=== PATIENT | female | born 1965 | race Caucasian/White ===

== ENCOUNTER 2020-01-06 12:25 | Outpatient (REF) | payer BC, SELFPAY | END 2020-01-06 12:26 | disposition home or self-care (01) | LOC: HO.LAB 12:25 | PROVIDERS: PCP Internal Medicine; Visit Provider Urology | DX: R30.0 Dysuria (principal); R35.0 Frequency of micturition | CPT/HCPCS: 87086 ==

== ENCOUNTER → 2020-02-24 09:00 | Outpatient (BNVA) | payer BC, SELFPAY | PROVIDERS: PCP Internal Medicine; Visit Provider Urology ==

== ENCOUNTER → 2020-09-24 08:52 | Outpatient (BNVA) | payer BC, SELFPAY | PROVIDERS: PCP Internal Medicine; Visit Provider Urology ==

== ENCOUNTER 2021-09-29 08:44 | Inpatient (IN) | payer BC, SELFPAY ==
--- NOTE | ~2021-09-29 | CT_ITS ---
CT ANGIOGRAM NECK WITH CONTRAST CT ANGIOGRAM BRAIN WITH CONTRAST CLINICAL INFORMATION: Right-sided numbness/deficit. COMPARISON: Head CT 09/29/2021. TECHNIQUE: Test bolus sequences followed by intravenous administration 70 mL of Omnipaque 350. Helical imaging was performed in the axial plane from the thoracic inlet to the skull vertex. Delayed postcontrast imaging of the head was also performed. The data was processed at the educational technologist workstation for generation of MIP sequences. Angled MIPs and volume rendered reformatted images were also generated at an offline 3D workstation under concurrent supervision. Stenoses are assessed in accordance with NASCET criteria unless otherwise indicated. This CT examination was performed using dose optimization techniques as appropriate, variously including the following: *Automated exposure control *Adjustment of mA and/or kV according to patient size (this includes techniques or standardized protocols for targeted exams where dose is matched to indication/reason for exam; i.e. extremities or head) *Use of iterative reconstruction technique FINDINGS: BRAIN: [There is no intracranial hemorrhage, hydrocephalus, extra-axial surface collection, midline shift, or other herniation pattern. Wall to white matter differentiation is diffusely maintained without evidence of an evolved acute territorial infarct. The basilar cisterns are preserved. No significant soft tissue abnormality. No acute osseous abnormality. The paranasal sinuses and the mastoid air cells are well aerated.] CERVICAL SOFT TISSUES AND LUNG APICES: Imaged lungs are clear. There is multilevel cervical spondylosis. NECK CTA: [There is a classic 3 vessel configuration of the aortic arch. Proximal arch vessels are non-stenotic. Left vertebral artery is dominant. No significant ostial stenosis is visualized on either side. Both vertebral arteries are widely patent throughout their extracranial cervical course. Both common carotid arteries are normal in course and caliber.] Mild atherosclerotic calcification involving the carotid bifurcations bilaterally without significant stenosis. BRAIN CTA: [There is normal opacification of major intracranial arteries. No focal flow-limiting stenosis nor discrete proximal large artery occlusion. 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 Timing of the contrast bolus allows assessment of the major dural venous sinuses, which all opacify normally] CT/CT angio head neck stroke IMPRESSION: - No acute intracranial findings. - No significant arterial stenoses in no acute arterial occlusions within the head or neck. 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 - Multilevel cervical spondylosis. Stroke protocol CTA results discussed with CHANDANA MCELROY at 10:18 AM on 09/29/2021.
--- NOTE | ~2021-09-29 | MR_ITS ---
MRI OF THE BRAIN WITHOUT IV CONTRAST INDICATION: Possible stroke. COMPARISON: Head CT and CTA head and neck 09/29/2021. TECHNIQUE: Multiplanar multisequence MR imaging of the brain was obtained without IV contrast. FINDINGS: There is mild chronic microangiopathy. There is a small acute infarct within the left starr radiata. No mass effect and no hemorrhagic transformation. There is no hydrocephalus, extra-axial surface collection, or herniation. The major flow voids at the skull base are preserved. 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 There is no intracranial hemorrhage on the gradient recalled echo acquisition. Partially empty sella. The cerebellar tonsils are normally positioned. The cerebellum and brainstem are normal. The craniocervical junction is normal. Osseous marrow signal intensity is homogenous. The visualized soft tissues are unremarkable. MR/MR head/brain wo con IMPRESSION: - There is a small acute infarct within the left starr radiata. No mass effect and no hemorrhagic transformation. - There is mild chronic microangiopathy. 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
--- NOTE | ~2021-09-29 | CT_ITS ---
EXAMINATION: CT HEAD WITHOUT CONTRAST CLINICAL INFORMATION: Evaluate for stroke COMPARISON: None TECHNIQUE: Contiguous axial imaging was performed from the skull base to vertex without intravenous administration of contrast. This CT examination was performed using dose optimization techniques as appropriate, variously including the following: *Automated exposure control *Adjustment of mA and/or kV according to patient size (this includes techniques or standardized protocols for targeted exams where dose is matched to indication/reason for exam; i.e. extremities or head) *Use of iterative reconstruction technique DLP: 600 mGy-cm FINDINGS: There is no evidence of acute intracranial hemorrhage or territorial infarction. No abnormal mass effect or midline shift is seen. Wall to white matter differentiation is well preserved. No extra-axial fluid collections are identified. The ventricles are normal in size. There is no abnormal attenuation within the brain parenchyma. The osseous structures and soft tissues are normal. The mastoid air cells and visualized portions of the paranasal sinuses are well aerated. CT/CT head/brain wo con IMPRESSION: No acute intracranial pathology. This critical result was discussed with NAVI DORAN by telephone on 09/29/2021 9:53 AM and it was ascertained that the content and urgency of the report was understood at the time of direct communication.
[2021-09-29 08:50] VITALS: BP 186/95; PULSE 119; RESP 18; TEMP 36.6; O2SAT 98; BMI 31.1
--- NOTE | 2021-09-29 09:22 | ED.NEUROSD ---
HPI - Neuro Symptoms/Deficit General Chief Complaint: Stroke Stated Complaint: numbness r arm and leg Time Seen by Provider: 09/29/21 09:22 Source: patient Mode of arrival: ambulatory Limitations: no limitations History of Present Illness HPI Narrative: Patient is a 56 year old female presenting to the emergency department today with right sided numbness and weakness. Patient states that at 4am she woke up with right arm and leg numbness and weakness. Patient states that she went back to sleep and woke up at 6am but the symptoms remained the same. Patient denies any facial drooping or slurred speech. Patient denies any change in gait. Patient denies any dizziness, lightheadedness, abdominal pain, nausea, vomiting, fever, chills, blurry vision, double vision, loss of vision, chest pain, difficulty breathing, shortness of breath, back pain, night sweats, pain with urination, increased urinary frequency, increased urinary urgency, blood in her urine or stool, syncope or a near syncopal episode, recent trauma or falls, bowel incontinence, bladder incontinence, bowel retention, bladder retention, or any other complaints at this time. Patient states that she is a 1PPD smoker and has a history of slightly elevated blood pressure but is not medicated for it. Onset (ago): hour(s) (5.5) Time: 04:00 Last Observed Normal: 00:00 Timing confirmed by: spouse Location: right arm and right leg History of same: No Severity: mild Quality: weak, numb and tingling Relieving factors: none Exacerbating factors: none On Anticoagulants: No Associated symptoms: denies other symptoms Treatments Prior to Arrival: none Related Data Home Medications Medication Instructions Recorded Confirmed acetaminophen 500 mg tablet 1,000 mg PO Q6H PRN Pain 09/29/21 09/29/21 calcium carbonate 550 mg-magnesium 1 tab PO DAILY 09/29/21 09/29/21 hydroxide 110 mg chewable tablet ibuprofen 200 mg tablet 400 mg PO Q8H PRN Pain 09/29/21 09/29/21 Allergies Allergy/AdvReac Type Severity Reaction Status Date / Time No Known Allergies Allergy Verified 09/24/20 08:39 Review of Systems Constitutional: Constitutional: Reports no additional constitutional complaints, Denies chills, Denies fever(s), Denies night sweats and Reports weakness Eyes: Eyes: Reports no additional eye complaints, Denies blurry vision, Denies change in vision, Denies diplopia, Denies eye discharge, Denies loss of vision and Denies eye pain ENT: Denies dizziness Cardiovascular: Cardiovascular: Reports no additional cardiovascular complaints, Denies chest pain, Denies lightheadedness, Denies Loss of Consciousness and Denies dyspnea Respiratory: Respiratory: Reports no additional respiratory complaints and Denies dyspnea Gastrointestinal: Gastrointestinal: Reports no additional gastrointestinal complaints, Denies abdominal pain, Denies melena, Denies hematochezia, Denies change in bowel habits and Denies change in stool character Genitourinary: Genitourinary: Denies hematuria, Denies urinary frequency, Denies dysuria, Denies urinary incontinence, Denies urinary hesitancy and Denies urinary urgency Musculoskeletal: Musculoskeletal: Reports no additional musculoskeletal complaints, Reports numbness and Reports tingling Neurologic: Denies dizziness, Denies loss of vision, Reports numbness, Reports tingling and Reports weakness Psychiatric: Psychiatric: Reports no additional psychiatric complaints Endocrine: Endocrine: Reports no additional endocrine complaints Hematologic/Lymphatic: Hematologic/Lymphatic: Reports no additional hematologic/lymphatic complaints Allergic/Immunologic: Allergic/Immunologic: Reports no additional allergic/immunologic complaints FOR[facility]LY [facility] Past Medical History Attestation statement: The following information was validated with the patient. Source: old records reviewed Medical History (Updated 09/29/21 @ 17:04 by NAVI Doran) Complicated UTI (urinary tract infection) CVA (cerebral vascular accident) Dysuria Frequency of micturition Heavy tobacco smoker >10 cigarettes per day Hypertension Recurrent UTI (urinary tract infection) Family History Family History (Updated 09/29/21 @ 13:20 by NAVI Hanna) Father Stomach cancer Mother Sarcoidosis Social History Social History Patient Tobacco Use Status: Current everyday Tobacco user Use of substances other than those prescribed or required for medical reasons: No Advance Directives: No Advance Directives Information Provided: No Physical Exam Vital Signs: Vital Signs: Last Vital Signs Temp 98 F 09/29/21 08:50 Pulse 119 H 09/29/21 08:50 Resp 18 09/29/21 08:50 BP 186/95 H 09/29/21 08:50 Pulse Ox 98 09/29/21 08:50 O2 Del Method 09/29/21 08:50 BMI result Body Mass Index 31.1 Const: General: cooperative, no acute distress, alert and awake Nutritional Appearance: well nourished Orientation/consciousness: patient oriented x3 Limitations: no limitations HEENT: Head: Yes normal to inspection and Yes atraumatic Ears: hearing grossly normal bilaterally and external ears normal General nose exam: Normal external nose present, no nasal discharge noted and no epistaxis Face and sinus: Yes normal facial exam, No abrasion and No laceration Mouth: Normal oral and palatal mucosa present, no drooling and no muffled voice Eyes: General: appearance normal, both eyes and all related structures Periorbital: periorbital findings normal Eyelids: Yes eyelids normal Conjunctivae: conjunctivae normal Pupils: Equal, round and reactive pupils present EOM: EOMs intact bilaterally Neck: Neck: Yes normal visual inspection, Yes full ROM and Yes no lymphadenopathy Chest: Chest palpation & inspection: normal inspection of the chest Resp: Effort & Inspection: normal respiratory effort and able to speak in complete sentences Auscultation: clear to auscultation bilaterally Cardio: Rate: tachycardic Rhythm: regular rhythm GI: Inspection: Yes normal to inspection Neuro: General: patient oriented x3 and moves all extremities Cranial nerves: Yes Equal, round and reactive pupils present Cognition (Neuro): normal cognition Motor exam (neuro): Abnormal motor strength present (mild weakness of the right arm and right leg) and Pronator motor function present pronator drift of right upper extremity Extrem: General: Yes normal to inspection, Yes full ROM and Yes capillary refill normal Psych: Appearance: grossly normal Mental Status: mental status grossly normal Affect: normal affect Attitude: cooperative Thought process: Normal thought process present Thought content: Normal thought content present Insight: Good insight present (Psych) MDM - Neuro Symptoms/Deficit MDM Narrative Medical decision making narrative: Patient is a 56 year old female presenting to the emergency department today with right arm and right leg weakness. Patient's physical exam showed positive right arm drift and minimal right arm and right leg weakness. Patient's blood work was unremarkable. Patient's EKG was unremarkable. Patient's head CT and head CTA showed no acute process. Patient's MR brain showed an acute infarct with T flare. Dr. Washington recommends the patient receive ASA and be admitted for further evaluation. I explained my physical exam findings as well as all test results to the patient and the patient's . I answered all questions asked by the patient and the patient's . I spoke to Dr. Ramey who agreed to admission.Patient and the patient's verbalized agreement and understanding with this treatment plan and admission. Medical Records Attestation: I reviewed the patient's medical records. Lab Data Attestation: I reviewed the patient's lab results. Result diagrams: 09/29/21 09:33 09/29/21 09:33 Labs: Lab Results 09/29/21 09/29/21 09/29/21 Range/Units 09:32 09:33 09:33 WBC 11.1 H (4.8-10.8) X10*3/uL RBC 5.10 (4.20-5.50) X10*6/uL Hgb 15.8 (12.0-16.0) g/dl Hct 46.5 (37.0-47.0) % MCV 91.2 (80.0-98.0) fL MCH 31.0 (27.0-33.0) pg MCHC 34.0 (31.0-35.0) g/dl RDW 13.6 (11.0-16.0) % Plt Count 204 (160-400) X10*3/uL MPV 11.0 (9.4-12.3) fL Immature Gran % (Auto) 0.3 (0.0-0.4) % Neut % (Auto) 78.8 H (45-73) % Lymph % (Auto) 13.4 L (20-40) % [place] % (Auto) 6.0 (2-11) % Eos % (Auto) 1.1 (0-4) % Baso % (Auto) 0.4 (0-2) % Lymph # (Auto) 1.5 (1.2-4.9) X10*3/uL [place] # (Auto) 0.7 (0.1-1.2) X10*3/uL Eos # (Auto) 0.1 (0.0-0.4) X10*3/uL Baso # (Auto) 0.1 (0.0-0.2) X10*3/uL Abs Immat Gran (auto) 0.03 (0.00-0.03) X10*3/uL Absolute Neuts (auto) 8.8 H (2.0-8.3) x10*3/uL Absolute Nucleated RBC 0.000 (0.0-0.012) X10*3/uL Nucleated RBC % (auto) 0.0 (0.0-0.2) /100WBC PT (10.0-13.1) SEC INR (0.9-1.1) APTT (26.0-36.4) SEC Sodium 143 (135-145) mmol/L Potassium 4.1 (3.3-5.1) mmol/L Chloride 107 (96-108) mmol/L Carbon Dioxide 25 (22-29) mmol/L Anion Gap 15 (12-20) BUN 6 L (9-16) mg/dL Creatinine 0.70 (0.5-1.4) mg/dL Estim Creat Clear Calc 84.2 Estimated GFR > 60 POC Glucose 111 (60-115) mg/dL Random Glucose 124 H (60-115) mg/dL Calcium 9.1 (8.4-10.2) mg/dL Magnesium 2.2 (1.6-2.6) mg/dL Total Bilirubin 0.3 (0.0-1.0) mg/dL AST 17 (5-31) U/L ALT 17 (0-31) U/L Alkaline Phosphatase 82 (39-117) U/L Troponin I High Sens (<3.5-17.0) ng/L Total Protein 7.7 (6.5-8.0) g/dL Albumin 4.4 (3.5-5.0) g/dL COVID-19 ([facility]) (Negative) COVID-19 Clin Com 09/29/21 09/29/21 09/29/21 Range/Units 09:33 09:33 09:33 WBC (4.8-10.8) X10*3/uL RBC (4.20-5.50) X10*6/uL Hgb (12.0-16.0) g/dl Hct (37.0-47.0) % MCV (80.0-98.0) fL MCH (27.0-33.0) pg MCHC (31.0-35.0) g/dl RDW (11.0-16.0) % Plt Count (160-400) X10*3/uL MPV (9.4-12.3) fL Immature Gran % (Auto) (0.0-0.4) % Neut % (Auto) (45-73) % Lymph % (Auto) (20-40) % [place] % (Auto) (2-11) % Eos % (Auto) (0-4) % Baso % (Auto) (0-2) % Lymph # (Auto) (1.2-4.9) X10*3/uL [place] # (Auto) (0.1-1.2) X10*3/uL Eos # (Auto) (0.0-0.4) X10*3/uL Baso # (Auto) (0.0-0.2) X10*3/uL Abs Immat Gran (auto) (0.00-0.03) X10*3/uL Absolute Neuts (auto) (2.0-8.3) x10*3/uL Absolute Nucleated RBC (0.0-0.012) X10*3/uL Nucleated RBC % (auto) (0.0-0.2) /100WBC PT 10.8 (10.0-13.1) SEC INR 0.9 (0.9-1.1) APTT 34.0 (26.0-36.4) SEC Sodium (135-145) mmol/L Potassium (3.3-5.1) mmol/L Chloride (96-108) mmol/L Carbon Dioxide (22-29) mmol/L Anion Gap (12-20) BUN (9-16) mg/dL Creatinine (0.5-1.4) mg/dL Estim Creat Clear Calc Estimated GFR POC Glucose (60-115) mg/dL Random Glucose (60-115) mg/dL Calcium (8.4-10.2) mg/dL Magnesium (1.6-2.6) mg/dL Total Bilirubin (0.0-1.0) mg/dL AST (5-31) U/L ALT (0-31) U/L Alkaline Phosphatase (39-117) U/L Troponin I High Sens < 3.5 (<3.5-17.0) ng/L Total Protein (6.5-8.0) g/dL Albumin (3.5-5.0) g/dL COVID-19 ([facility]) Negative (Negative) COVID-19 Clin Com See Note Imaging Data CT scan - head: Attestation: I personally reviewed and interpreted this imaging study as follows: My impression: No acute process. Radiologist's impression: EXAMINATION: CT HEAD WITHOUT CONTRAST CLINICAL INFORMATION: Evaluate for stroke? COMPARISON: None TECHNIQUE: Contiguous axial imaging was performed from the skull base to vertex without intravenous administration of contrast. This CT examination was performed using dose optimization techniques as appropriate, variously including the following: *Automated exposure control *Adjustment of mA and/or kV according to patient size (this includes techniques or standardized protocols for targeted exams where dose is matched to indication/reason for exam; i.e. extremities or head) *Use of iterative reconstruction technique DLP: 600 mGy-cm FINDINGS: There is no evidence of acute intracranial hemorrhage or territorial infarction. No abnormal mass effect or midline shift is seen. Wall to white matter differentiation is well preserved. No extra-axial fluid collections are identified. The ventricles are normal in size. There is no abnormal attenuation within the brain parenchyma. The osseous structures and soft tissues are normal. The mastoid air cells and visualized portions of the paranasal sinuses are well aerated. ? CT/CT head/brain wo con IMPRESSION: No acute intracranial pathology. ? This critical result was discussed with NAVI DORAN by telephone on 09/29/2021 9:53 AM and it was ascertained that the content and urgency of the report was understood at the time of direct communication. Dictated By: Julian Parham MD Signed By: Electronically signed by Julian Parham MD 09/29/21 0958 CTA Head and neck: Attestation: I personally reviewed and interpreted this imaging study as follows: My impression: No acute process. Radiologist's impression: CT ANGIOGRAM NECK WITH CONTRAST CT ANGIOGRAM BRAIN WITH CONTRAST CLINICAL INFORMATION: Right-sided numbness/deficit.? COMPARISON: Head CT 09/29/2021. TECHNIQUE: Test bolus sequences followed by intravenous administration 70 mL of Omnipaque 350. Helical imaging was performed in the axial plane from the thoracic inlet to the skull vertex. Delayed postcontrast imaging of the head was also performed. The data was processed at the production control technologist workstation for generation of MIP sequences. Angled MIPs and volume rendered reformatted images were also generated at an offline 3D workstation under concurrent supervision. Stenoses are assessed in accordance with NASCET criteria unless otherwise indicated. This CT examination was performed using dose optimization techniques as appropriate, variously including the following: *Automated exposure control *Adjustment of mA and/or kV according to patient size (this includes techniques or standardized protocols for targeted exams where dose is matched to indication/reason for exam; i.e. extremities or head) *Use of iterative reconstruction technique FINDINGS: BRAIN: [There is no intracranial hemorrhage, hydrocephalus, extra-axial surface collection, midline shift, or other herniation pattern. Wall to white matter differentiation is diffusely maintained without evidence of an evolved acute territorial infarct. The basilar cisterns are preserved. No significant soft tissue abnormality. No acute osseous abnormality. The paranasal sinuses and the mastoid air cells are well aerated.] CERVICAL SOFT TISSUES AND LUNG APICES: Imaged lungs are clear. There is multilevel cervical spondylosis. NECK CTA: [There is a classic 3 vessel configuration of the aortic arch. Proximal arch vessels are non-stenotic. Left vertebral artery is dominant. No significant ostial stenosis is visualized on either side. Both vertebral arteries are widely patent throughout their extracranial cervical course. Both common carotid arteries are normal in course and caliber.] Mild atherosclerotic calcification involving the carotid bifurcations bilaterally without significant stenosis. BRAIN CTA: [There is normal opacification of major intracranial arteries. No focal flow-limiting stenosis nor discrete proximal large artery occlusion. 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 Timing of the contrast bolus allows assessment of the major dural venous sinuses, which all opacify normally] CT/CT angio head? neck stroke IMPRESSION: - No acute intracranial findings. ? - No significant arterial stenoses in no acute arterial occlusions within the head or neck. ? 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 ? - Multilevel cervical spondylosis. ? Stroke protocol CTA results discussed with CHANDANA MCELROY at 10:18 AM on 09/29/2021. Dictated By: Gato Colvin MD Signed By: Electronically signed by Gato Colvin MD 09/29/21 1021 MRI - head: Attestation: I personally reviewed and interpreted this imaging study as follows: My impression: Acute infarct Radiologist's impression: MRI OF THE BRAIN WITHOUT IV CONTRAST INDICATION: Possible stroke. COMPARISON: Head CT and CTA head and neck 09/29/2021. TECHNIQUE: Multiplanar multisequence MR imaging of the brain was obtained without IV contrast. FINDINGS: There is mild chronic microangiopathy. There is a small acute infarct within the left starr radiata. No mass effect and no hemorrhagic transformation. There is no hydrocephalus, extra-axial surface collection, or herniation. The major flow voids at the skull base are preserved. 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 There is no intracranial hemorrhage on the gradient recalled echo acquisition. Partially empty sella. The cerebellar tonsils are normally positioned. The cerebellum and brainstem are normal. The craniocervical junction is normal. Osseous marrow signal intensity is homogenous. The visualized soft tissues are unremarkable. MR/MR head/brain wo con IMPRESSION: - There is a small acute infarct within the left starr radiata. No mass effect and no hemorrhagic transformation. ? - There is mild chronic microangiopathy. ? 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 Dictated By: Gato Colvin MD Signed By: Electronically signed by Gato Colvin MD 09/29/21 1157 ECG Data Attestation: I personally reviewed and interpreted this ECG as follows: ECG interpretation date: 09/29/21 ECG interpretation time: : Prior ECG tracings: available for review Interpretation: Vent. Rate: 107 BPM ? ? Atrial Rate: 107 BPM P-R Int: 160 ms? QRS Dur: 080 ms QT Int: 346 ms ? ? ? P-R-T Axes: 067 011 052 degrees QTc Int: 461 ms ? Sinus tachycardia Possible Left atrial enlargement Abnormal ECG No previous ECGs available ? Referred By: Chandana Mills ? Electronically Signed By:DERRICK DECKERCP Dictated By: Derrick Raymond DO Signed By: Electronically signed by Derrick Raymond DO 09/29/21 1034 NIH Stroke Scale Internal: Initial- Upon Arrival Time: : Level of Consciousness: Alert Level of Consciousness Questions: Answers both questions correctly Level of Consciousness Commands: Performs both tasks correctly Best Gaze: Normal Visual: No visual loss Facial Palsy: Normal Motor Arm (Right): Drift Motor Arm (Left): No drift Motor Leg (Right): No drift Motor Leg (Left): No drift Limb Ataxia: Absent Sensory: Normal Best Language: No aphasia Dysarthia: Normal Extinction and Inattention: No abnormality Score: 1 Critical Care Time Critical Care Time Critical Care Time: Yes Total Critical Care Time: 35 Attestation: I spent 35 minutes of Critical Care Time with this patient. This does not include time spent on separately reported billable procedures. Discharge Plan Discharge Clinical Impression: CVA (cerebral vascular accident) Patient Disposition: Admitted As Inpatient
--- NOTE | 2021-09-29 09:27 | ECG_ITS ---
Test Reason : stroke Blood Pressure : / mmHG Vent. Rate : 107 BPM Atrial Rate : 107 BPM P-R Int : 160 ms QRS Dur : 080 ms QT Int : 346 ms P-R-T Axes : 067 011 052 degrees QTc Int : 461 ms Sinus tachycardia Possible Left atrial enlargement Abnormal ECG No previous ECGs available Referred By: Marie Mills Electronically Signed By:DERRICK BOYD
[2021-09-29 09:36] LABS: Glucose, Whole Blood 111 mg/dL (60-115)
[2021-09-29 09:37] LABS: MANUAL DIFF FLAG NO
[2021-09-29 09:39] LABS: Basophils Absolute Auto 0.1 X10*3/uL (0.0-0.2); Basophils Percent Auto 0.4 % (0-2); Eosinophils Absolute Auto 0.1 X10*3/uL (0.0-0.4); Eosinophils Percent Auto 1.1 % (0-4); Hematocrit 46.5 % (37.0-47.0); Hemoglobin 15.8 g/dl (12.0-16.0); Imm Gran Abs Auto 0.03 X10*3/uL (0.00-0.03); Imm Gran Pct Auto 0.3 % (0.0-0.4); Lymphocytes Absolute Auto 1.5 X10*3/uL (1.2-4.9); Lymphocytes Percent Auto 13.4 % (20-40); Mean Corpuscular Volume 91.2 fL (80.0-98.0); Monocytes Absolute Auto 0.7 X10*3/uL (0.1-1.2); Neutrophils Absolute Auto 8.8 x10*3/uL (2.0-8.3); Neutrophils Percent Auto 78.8 % (45-73); Platelet Count 204 X10*3/uL (160-400); Red Cell Distribution Width 13.6 % (11.0-16.0); White Blood Count 11.1 X10*3/uL (4.8-10.8)
[2021-09-29 09:45] LABS: INTERNATIONAL NORM RATIO 0.9 (0.9-1.1); Prothrombin Time 10.8 SEC (10.0-13.1)
[2021-09-29 09:52] LABS: COVID-19 Test Negative (Negative); IDNOW Serial# 16C4AD1C
[2021-09-29 09:59] LABS: Troponin-I High Sensitivity < 3.5 ng/L (<3.5-17.0)
[2021-09-29] MEDS: iohexoL 350 MG/ML 100 ML INFUS..BTL IV (10:02)
[2021-09-29 10:05] LABS: Alanine Aminotransferase 17 U/L (0-31); Albumin Level 4.4 g/dL (3.5-5.0); Alkaline Phosphatase 82 U/L (39-117); Anion Gap 15 (12-20); Aspartate Amino Transferase 17 U/L (5-31); Bilirubin Total 0.3 mg/dL (0.0-1.0); Blood Urea Nitrogen 6 mg/dL (9-16); Calcium 9.1 mg/dL (8.4-10.2); Carbon Dioxide 25 mmol/L (22-29); Chloride 107 mmol/L (96-108); Creatinine Clr Calc Pharmacy 84.2; Estimated Glomerular Filt Rate > 60; Glucose Random 124 mg/dL (60-115); Magnesium 2.2 mg/dL (1.6-2.6); Potassium 4.1 mmol/L (3.3-5.1); Sodium 143 mmol/L (135-145); Total Protein 7.7 g/dL (6.5-8.0)
[2021-09-29] MEDS: Aspirin 81 MG TAB.CHEW 324 MG PO (11:32)
[2021-09-29] MEDS: Nicotine Polacrilex 2 MG GUM BUCCAL ×2 (12:11→17:46)
--- NOTE | 2021-09-29 12:20 | MHC.STROKE ---
Addendum entered by Paulette Wing RN 10/04/21 11:33: [address] [facility] [address] HARDING. I SPOKE WITH JOHN THE YARD RIGGER. SHE IS ASSISTING ME IN GETTING AN OP PT/OT ORDER FOR THIS PATIENT. AT 1131 SHE CONFIRMED THAT THE ORDER WAS FAXED AND I DID FOLLOW UP WITH [facility] [place] [facility] [place]LLOW UP WITH THE PATIENT REGARDING THIS ORDER. Addendum entered by Paulette Wing RN 10/03/21 09:51: [facility] AND THEY DO NOT HAVE AN OP ORDER FOR PT AND OT. I ALSO CHECKED WITH THE CALL CENTER [facility] AND REVIEWED THIS CASE. SHE WILL CONTACT THE HOSPITALIST OR DR HARDING FOR AN ORDER FOR OP PT AND OT. WE WILL GET HER AN APPOINTMENT SOON POSSIBLE. Addendum entered by Paulette Wing RN 09/30/21 14:33: EXCLUDED FROM VTE PROPHYLAXIS DUE TO BEING AMBULATORY. Addendum entered by Paulette Wing RN 09/30/21 14:23: 1300 I MET WITH THE PATIENT AND HER TODAY A FOLLOW UP, HER ECHO WAS PENDING THEN SHE WILL BE DISCHARGED HOME. HER DEFICITS FROM YESTERDAY ARE WORSENED, THE HAND IS STILL ATAXIC AND WEAK, AND NOW THE RIGHT LEG HAS A DRIFT AND HAS DECREASED MOBILITY. OT WAS UNAVAILABLE TODAY THEREFORE I RECEIVED A 2-PAGE HANDOUT OF HAND EXERCISE, PUTTY, AND COTTON BALLS THAT I REVIEWED WITH HER ON HOW TO EXERCISE HER HAND AND FINGERS, SHE WILL NEED OP OT AND PT. HER RIGHT LEG IS UNCOORDINATED AND THEREFORE SHE HAS BEEN ADVISED NOT TO DRIVE 9SHE COULD NOT MANAGE THE GAS AND BRAKE PEDDLE DUE TO THIS STROKE. I DID REVIEW THIS WITH HER AND HER AND STRESSED THE IMPORTANCE OF FOLLOWING UP WITH HER PCP AND THEY WILL COORDINATE HER CARE AND CLEAR HER WHEN SHE CAN DRIVE OR GO BACK TO WORK. SHE WAS COOPERATIVE BUT DEFINITELY DID NOT WANT TO STAY IN THE HOSPITAL ANY LONGER THAN NEEDED. SHE DECIDED SHE WOULD STAY FOR HER ECHOCARDIOGRAM. I ANSWERED ALL OF THEIR QUESTIONS AND REINFORCED HER RISK FACTORS, HTN, HLD, SMOKING AND SHE UNDERSTANDS. Original Note: 09/29/21 0844 PATIENT WALKED-IN WITH C/O RIGHT HAND/ARM WEAKNESS, LKW 0000, WOKE AT 0400 AND NOTICED RIGHT ARM AND HAND SLIGHT LEG WEAKNESS, WENT BACK TO BED AND WOKE AGAIN AT 0600 AND HAD ONGOING RIGHT HAND/LEG WEAKNESS. EXAMINED BY Talon MCELROY, NIHSS = 1 (RA). CTH THEN CTA H/N, NO BLEED, NO LVO. SHE HAD DIFFICULTY SIGNING HER NAME. RIGHT HAND DOMINATE. I WAS AT THE BEDSIDE, DR MONTGOMERY NOTIFIED, STAT MRI DONE _ LEFT NELSON RADIA ISCHEMIC STROKE IN DWI, ALSO MATCHED IN [id number] SEQUENCE THEREFORE CONFIRMED OUT OF THE WINDOW FOR TPA-ALTEPLASE. PASSED SWALLOW SCREEN, ASA GIVEN, SHE WILL BE ADMITTED. I PROVIDED STROKE EDUCATION TO PATIENT AND HER FELI. HX: SMOKER, HTN. WORKS A [employer]VER[employer]. I REVIEWED THE PLAN OF CARE AND UPCOMING TESTS THAT WILL BE NEEDED. I GAVE THEM A SCREENSHOT OF THE MRI AND REVIEWED WHERE THE STROKE IS. SHE REALLY WANTS TO GO HOME BUT I EXPLAINED WHY SHE NEEDS TO STAY SO WE CAN DETERMINE THE CAUSE OF HER STROKE, MONITOR HER HEART, PROVIDE MEDICATIONS AND BLOOD WORK AND EVAL FOR REHAB. I ANSWERED ALL OF HER QUESTIONS. I WILL CONTINUE TO FOLLOW.
--- NOTE | 2021-09-29 12:34 | PHA.MEDREC ---
Pharmacy Consult ? Medication Reconciliation Pharmacy has completed the medication reconciliation. Patient attests to taking no prescription medications. Only reports rolaids, tylenol, and motrin use.
--- NOTE | 2021-09-29 12:44 | P.HPHOSP_ITS ---
History of Present Illness Date of Service: 09/29/21 Attending physician on admission: Orlando Diaz Chief Complaint: CVA 56 year old female with borderline hypertension and who is a current 1ppd cigarette smoker presented to the ED this morning for right sided weakness that started around 4am. Awake with weakness and numbness in the right extremities but associated this with sleep position. Woke again at 6am with persistent symptoms that were not resolving promping her to present to the ED. No prior history of similar symptoms. No history of blood clots. 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 Head CT without any acute intracranial pathology. Neurology consult recommending MRI brain showing small actue infarct within the promimal left starr radiata. No mass effect and no hemorrhagic tansformation. Mild Chronic microangiography. A saccular aneurysm projecting inferiorly from the proximal left cavernous ICA segment (seen on CTA). She has received 324mg aspirin. Hypertensive with BP 186/95. Still reporting persistent weakness and numbness right upper and lower extremities. No blurred vision, diplopia, headache, facial droop, dysphagia, dysphasia, lightheadedness. Review of Systems Review of Systems: General: No fevers, malaise, unintentional weight loss HEENT: No blurred vision, diplopia. Cardiovascular: No chest pain, palpitations, or leg edema Respiratory: No shortness of breath, wheezing, cough GI: No abdominal pain, dysphagia, nausea, vomiting, diarrhea, constipation, melena, hematochezia Neuro: +weakness, paresthesias right extremities. No headaches, lightheadedness, facial droop, dysphasia Skin: No rashes or lesions [facility] Medical History Complicated UTI (urinary tract infection) CVA (cerebral vascular accident) Dysuria Frequency of micturition Heavy tobacco smoker >10 cigarettes per day Hypertension Recurrent UTI (urinary tract infection) Family History (Updated 09/29/21 @ 13:20 by NAVI Hanna) Father Stomach cancer Mother Sarcoidosis Social History Household Members: Spouse Housing: House Do you presently have visiting nurse or other home services: No Patient Tobacco Use Status: Current everyday Tobacco user Tobacco use type: Cigarette Patient Interested in Nicotine Replacement: Yes Use of substances other than those prescribed or required for medical reasons: No Currently Displaying Signs/Symptoms of Drug Intoxication Withdrawal: No Have you been hit, kicked, punched, or otherwise hurt by someone within the past year? If so, by whom?: No Do you feel safe in your current relationship?: Yes Is there a partner from a previous relationship who is making you feel unsafe now?: No Are you made to feel afraid or neglected: No Advance Directives: No Advance Directives Information Provided: No Do you have thoughts of harming others: None Do you have a plan to hurt others: No Plan Recently lost weight without trying: No Eating poorly because of decreased appetite: No Nutrition Risks: No Nutritional Risk Patient : No : No Poor oral hygiene: No service: No Current occupational status: employed Meds Allergies Allergy/AdvReac Type Severity Reaction Status Date / Time No Known Allergies Allergy Verified 09/24/20 08:39 Active Medications: Current Medications Nicotine Polacrilex (Nicotine Polacrilex 2 Mg Gum) 2 mg BUCCAL ONCE PRN PRN Reason: craving Last Admin: 09/29/21 12:11 Dose: 2 mg Pharmacy Consult (Consult Rx Perform Med Rec) 1 each MISCELLANE ONCE PRN PRN Reason: Consult order Home Medications Medication Instructions Recorded Confirmed Last Taken Type acetaminophen 500 mg tablet 1,000 mg PO Q6H PRN Pain 09/29/21 09/29/21 09/28/21 History calcium carbonate 550 mg-magnesium 1 tab PO DAILY 09/29/21 09/29/21 Unknown History hydroxide 110 mg chewable tablet ibuprofen 200 mg tablet 400 mg PO Q8H PRN Pain 09/29/21 09/29/21 Unknown History Physical Exam Vital Signs and Narrative: Vital Signs: Last Vital Signs Temp 98 F 09/29/21 08:50 Pulse 119 H 09/29/21 08:50 Resp 18 09/29/21 08:50 BP 186/95 H 09/29/21 08:50 Pulse Ox 98 09/29/21 08:50 O2 Del Method 09/29/21 08:50 BMI result Body Mass Index 31.1 Constitutional - Awake and Alert, No apparent distress Eyes - PERRLA, EOMI Cardiovascular - S1S2, RRR, No edema. Radial and pedal pulses equal 2+ Respiratory - Normal lung expansion, Normal respiratory effort, No respiratory distress, CTA bilaterally Gastrointestinal - NT / ND; +BS; No rebound or guarding Extremities - no calf tenderness bilaterally, no swelling Skin - Warm/Dry Neurological - Alert & oriented x3, CN II-XII in tact, 3/5 strength RUE, 4/5 RLE. 5/5 strength LUE and LLE. Positive pronator dirft RUE. Psychological - Appropriate affect Results Labs CBC and Chem 7: 09/29/21 09:33 09/29/21 09:33 Labs: Laboratory Results - last 24 hr 09/29/21 09/29/21 09/29/21 09:32 09:33 09:33 MCV 91.2 MCH 31.0 MCHC 34.0 RDW 13.6 Plt Count 204 MPV 11.0 Immature Gran % (Auto) 0.3 Neut % (Auto) 78.8 H Lymph % (Auto) 13.4 L [place] % (Auto) 6.0 Eos % (Auto) 1.1 Baso % (Auto) 0.4 Lymph # (Auto) 1.5 [place] # (Auto) 0.7 Eos # (Auto) 0.1 Baso # (Auto) 0.1 Abs Immat Gran (auto) 0.03 Absolute Neuts (auto) 8.8 H Absolute Nucleated RBC 0.000 Nucleated RBC % (auto) 0.0 PT INR APTT Anion Gap 15 Estim Creat Clear Calc 84.2 Estimated GFR > 60 POC Glucose 111 Random Glucose 124 H Calcium 9.1 Magnesium 2.2 Total Bilirubin 0.3 AST 17 ALT 17 Alkaline Phosphatase 82 Total Protein 7.7 Albumin 4.4 COVID-19 (ROSEANNA) COVID-19 Clin Com 09/29/21 09/29/21 09:33 09:33 MCV MCH MCHC RDW Plt Count MPV Immature Gran % (Auto) Neut % (Auto) Lymph % (Auto) [place] % (Auto) Eos % (Auto) Baso % (Auto) Lymph # (Auto) [place] # (Auto) Eos # (Auto) Baso # (Auto) Abs Immat Gran (auto) Absolute Neuts (auto) Absolute Nucleated RBC Nucleated RBC % (auto) PT 10.8 INR 0.9 APTT 34.0 Anion Gap Estim Creat Clear Calc Estimated GFR POC Glucose Random Glucose Calcium Magnesium Total Bilirubin AST ALT Alkaline Phosphatase Total Protein Albumin COVID-19 (ROSEANNA) Negative COVID-19 Clin Com See Note Imaging Radiologist's Impressions: Impressions Head CT 09/29/21 09:25 IMPRESSION: No acute intracranial pathology. This critical result was discussed with NAVI DORAN by telephone on 09/29/2021 9:53 AM and it was ascertained that the content and urgency of the report was understood at the time of direct communication. Head/Neck CTA 09/29/21 09:55 IMPRESSION: - No acute intracranial findings. - No significant arterial stenoses in no acute arterial occlusions within the head or neck. 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 - Multilevel cervical spondylosis. Stroke protocol CTA results discussed with CHANDANA MCELROY at 10:18 AM on 09/29/2021. Brain MRI 09/29/21 10:40 IMPRESSION: - There is a small acute infarct within the left starr radiata. No mass effect and no hemorrhagic transformation. - There is mild chronic microangiopathy. 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 Assessment and Plan (1) CVA (cerebral vascular accident): Status: Acute (2) Hypertension: Status: Acute (3) Heavy tobacco smoker >10 cigarettes per day: Status: Acute Plan 56 year old female with borderline hypertension and who is a current 1ppd cigarette smoker admitted for acute CVA with righted sided weakness. 1- Acute CVA- MRI brain: There is a small acute infarct within the left starr radiata. No mass effect and no hemorrhagic transformation. 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 -Risk factors including heavy daily smoker and uncontrolled htn (though pt states this has been diagnosed as borderline htn and is not on medications). -Not a tpa candidate due to delay in arrival. Neuro consulted recommending admission. -Given 324mg aspirin -Stat echocardiogram ordered -Atrovastatin 80mg ordered. Check lipid panel am -PT/OT ordered for persistent weakness RUE and RLE -Passed her swallow eval, no speech needed 2- HTN- uncontrolled -Hold antihypertensives at this time to allow for permissive htn for perfusion of the penumbra -Continue moitoring 3-Current 1ppd cigarette smoker -Cessation counseling -Nicorette gum for cessation. Consider patches if needed DVT prophylaxis- 324mg aspirin Full Code Patient requries inpatient stay of at least 2 midnights due to acute CVA requiring further work up. Quality Stroke Does the patient have a stroke diagnosis?: No VTE Prior VTE?: No VTE Risk Level:: Medical - moderate - high VTE Device Contraindication: Treatment Not Indicated VTE Drug Contraindication: N/A - Med Ordered
[2021-09-29] MEDS: Atorvastatin Calcium 80 MG TABLET PO (13:09)
--- NOTE | 2021-09-29 13:48 | P.CNNE_ITS ---
History of Present Illness Data of Consult Service Date: 09/29/21 Primary Care Provider: Caleb Gill MD [facility] Reason for consult: Stroke 56 years old woman who probably has underlying history of hypertension but was not taking any medicine for it came to hospital with new onset of right-sided numbness and weakness. It started many hours or more than 6 hours before she came and she was not considered a candidate for intravenous tPA. Further imaging was done to figure out if we could treated any any different way. Unfortunately she did not have any treatable lesion. When I saw her in emergency room she was feeling better but still had right-sided numbness and weakness. She was asking when she could go home. Review of Systems Review of Systems: No recent cold or flu-like illness trauma seizure chest pain or shortness of breath PMFSH Past Medical History Medical History (Updated 09/29/21 @ 13:52 by Van Washington MD) Complicated UTI (urinary tract infection) CVA (cerebral vascular accident) Dysuria Frequency of micturition Heavy tobacco smoker >10 cigarettes per day Hypertension Recurrent UTI (urinary tract infection) Family History Family History (Updated 09/29/21 @ 13:20 by NAVI Hanna) Father Stomach cancer Mother Sarcoidosis Social History Social History Patient Tobacco Use Status: Current everyday Tobacco user Use of substances other than those prescribed or required for medical reasons: No Advance Directives: No Advance Directives Information Provided: No Meds Allergies Allergy/AdvReac Type Severity Reaction Status Date / Time No Known Allergies Allergy Verified 09/24/20 08:39 Active Medications: Current Medications Aspirin (Aspirin 325 Mg Tablet) 325 mg PO DAILY FLORENTIN Atorvastatin Calcium (Atorvastatin Calcium 80 Mg Tablet) 80 mg PO DAILY FLORENTIN Last Admin: 09/29/21 13:09 Dose: 80 mg Nicotine Polacrilex (Nicotine Polacrilex 2 Mg Gum) 2 mg BUCCAL ONCE PRN PRN Reason: craving Last Admin: 09/29/21 12:11 Dose: 2 mg Pharmacy Consult (Consult Rx Perform Med Rec) 1 each MISCELLANE ONCE PRN PRN Reason: Consult order Home Medications Medication Instructions Recorded Confirmed Last Taken Type acetaminophen 500 mg tablet 1,000 mg PO Q6H PRN Pain 09/29/21 09/29/21 09/28/21 History calcium carbonate 550 mg-magnesium 1 tab PO DAILY 09/29/21 09/29/21 Unknown History hydroxide 110 mg chewable tablet ibuprofen 200 mg tablet 400 mg PO Q8H PRN Pain 09/29/21 09/29/21 Unknown History Physical Exam Vital Signs: Vital Signs: Last Vital Signs Temp 98 F 09/29/21 08:50 Pulse 119 H 09/29/21 08:50 Resp 18 09/29/21 08:50 BP 186/95 H 09/29/21 08:50 Pulse Ox 98 09/29/21 08:50 O2 Del Method 09/29/21 08:50 BMI result Body Mass Index 31.1 Neuro: Other: She was alert and awake with normal spontaneity of speech fluency comprehension and affect. Face was symmetrical. Visual lr are full to confrontation. There was right pronator drift. There was mild right arm and leg weakness. Plantars were flexors. Deep tendon reflexes were trace to 1+. There was no visual or sensory neglect. Results Labs CBC & Chem 7: 09/29/21 09:33 09/29/21 09:33 Labs: Short CBC 09/29/21 Range/Units 09:33 WBC 11.1 H (4.8-10.8) X10*3/uL Hgb 15.8 (12.0-16.0) g/dl Hct 46.5 (37.0-47.0) % Plt Count 204 (160-400) X10*3/uL BMP 09/29/21 09:33 Sodium 143 Potassium 4.1 Chloride 107 Carbon Dioxide 25 BUN 6 L Creatinine 0.70 Calcium 9.1 Liver Function 09/29/21 Range/Units 09:33 Total Bilirubin 0.3 (0.0-1.0) mg/dL AST 17 (5-31) U/L ALT 17 (0-31) U/L Alkaline Phosphatase 82 (39-117) U/L Albumin 4.4 (3.5-5.0) g/dL MRI of brain revealed an acute small left posterior parietal starr radiata area ischemic infarct with mild to moderate underlying chronic microvascular disease. A small left extradural ICA aneurysm was also noted Assessment and Plan (1) Cerebral infarction: Status: Acute Small left subcortical hypertension related atherothrombotic ischemic infarction resulting in right arm or leg mild weakness. Mainstay of management is anti- platelet agents such as baby aspirin, statin and blood pressure control. She was strongly advised to take care of these matters. (2) Cerebral aneurysm: Status: Acute Small ICA aneurysm, which does not require any intervention at this time. She can follow-up clinically as an outpatient. Procedures Date of Service Date of Service: 09/29/21
[2021-09-29 17:45] VITALS: PULSE 105; RESP 18; O2SAT 98
--- NOTE | 2021-09-29 21:29 | MHC.CM.PN ---
Met with admitted patient with bed assignment pending. A&Ox4. Lives with . Employed. Uses no DME or services. Drives. PT recommends ? home PT vs outpatient PT. Will benefit from OT. OT eval pending. Pt is not homebound. Pt is agreeable to outpatient services. Pt plans to work next week. Anxious to go home. HCP reviewed, completed and signed. Copies given. Uploaded into [employer] and [facility] [employer]. HCP/ Javed Uriostegui ([phone]). Vax x2/boosted/Moderna. Pt smokes 1 pack/day. D/C plan: Home with outpatient services. Pending OT. to transport home.
[2021-09-29 23:13] VITALS: BP 132/65; PULSE 99; RESP 17; O2SAT 92
[2021-09-30 00:24] VITALS: BP 152/77; PULSE 109; RESP 20; TEMP 37.9; O2SAT 95
[2021-09-30 00:37] VITALS: BMI 28.6
[2021-09-30] MEDS: Acetaminophen 325 MG TABLET 650 MG PO (00:55)
[2021-09-30 01:42] LABS: Lactic Acid 1.1 mmol/L (0.5-2.0)
[2021-09-30 02:19] VITALS: TEMP 37.4
[2021-09-30 03:58] VITALS: BP 139/65; PULSE 92; RESP 16; TEMP 37; O2SAT 94
[2021-09-30 04:20] LABS: Appearance Urine Clear; Color Urine Yellow; Glucose Urine UA Negative (Negative); Leukocyte Esterase Urine Negative (Negative); Nitrite Urine Negative (Negative); PH 6.5 (5.0-8.0); Specific Gravity - Urine <= 1.005 (1.005-1.025); Urine Blood Moderate (2+) (Negative); Urine Ketones Negative (Negative); Urine Protein Negative (Neg-Trace)
[2021-09-30 04:24] LABS: Bacteria Urine 1+ (None Seen); Hyaline Casts Urine 0-2 /LPF (0-2); Squamous Epithelial Cell Urine 0-2 /HPF (0-2); WBC Urine 0-5 /HPF (0-5)
--- NOTE | 2021-09-30 07:00 | CA_ITS ---
Transthoracic Echocardiogram Patient (Last, First, Middle): Jeanie Uriostegui J Gender: Female Date of : 1965 Age: 56 Procedure Date: 09/30/2021 Procedure Type: Transthoracic Echocardiogram Location: [facility] Height: 187.96 cm Weight: 77.11 kg BSA: 2.03 m2 Heart Rate: 85 bpm BP: 186 / 95 mmHg Powder Guard: Referring MD: Orlando Diaz DO Symptoms: CVA Study Quality: Adequate ECG Rhythm: Sinus Conclusions: - The left ventricular systolic function is normal. The calculated ejection fraction is 63% by biplane method. - There is mild calcification of the aortic valve. - No obvious valvular pathology seen on this study. Findings Left Ventricle Normal left ventricular cavity size. There is mildly increased left ventricular wall thickness. The left ventricular systolic function is normal. The calculated ejection fraction is 63% by biplane method. There is no evidence of regional wall motion abnormalities. Diastolic function is normal for age. Right Ventricle Normal right ventricular cavity size and systolic function. Atria Both atria are normal in size. There is no evidence of interatrial shunt by color Doppler. Aortic Valve There is a normal trileaflet aortic valve. There is mild calcification of the aortic valve. There is no aortic valve stenosis. There is no aortic valve regurgitation. Mitral Valve The mitral valve appears normal. There is no mitral valve regurgitation. There is no mitral valve stenosis. Pulmonic Valve The pulmonic valve is likely normal. Tricuspid Valve Normal tricuspid valve structure. There is trace tricuspid valve regurgitation. The pulmonary artery systolic pressure is normal. Great Vessels The aortic annulus, sinuses of valsalva, and asc aorta are normal in size. Venous The inferior vena cava is normal in size and collapses greater than 50% with inspiration. Pericardium/Pleural There is no evidence of pericardial effusion. Prior Study Comparison No prior study available for comparison. If clinically indicated, consider bubble study to assess for intracardiac shunting. Recommendations, Care & Conclusions No obvious valvular pathology seen on this study. Measurements 2D Linear Measurements IVSd: 1.20 0.6-0.9/0.6-1.0 cm LVIDd: 3.77 3.9-5.3/4.2-5.9 cm LVIDd Index: 1.86 2.4-3.2/2.2-3.1 cm/m2 LVIDs: 2.41 2.0-3.6 cm LVPWd: 1.21 0.7-1.1 cm LA Diam: 3.10 2.7-3.8/3.0-4.0 cm LAIDs Index: 1.53 1.5-2.3 cm/m2 LV Mass: 189.74 67-162/88-224 g LV Mass Index: 93.47 43-95/49-115 g/m2 LVOT Diam: 2.00 3.0+(-)1.3 cm 2D Systolic Function EF 4C: 56.80 >55% EF 2C: 68.90 >55% EF BiP: 63.40 >55% Mitral Valve MV Pk E: 0.78 MV PK A: 1.02 MV Decel Time: 141.00 E/A: 0.80 E'Lateral: 7.72 E'Medial: 6.53 E/E' Med: 12.00 E/E' Lat: 10.20 PHT: 41.00 MVA PHT: 5.37 Decel Bertie: 5.55 Aortic Valve AoV Pk Sunil: 1.51 AoV Mn Sunil: 1.00 AoV VTI: 0.30 AoV Pk Grad: 9.00 Aov Mn Grad: 5.00 MARIANO Cont.VTI: 2.15 LVOT LVOT Pk Sunil: 1.01 LVOT Mn Sunil: 0.70 LVOT VTI: 0.21 LVOT Pk Grad: 4.00 LVOT Mn Grad: 2.00 LVOT Diam: 2.00 LVOT Area: 3.14 Diastolic Function MV Pk E: 0.78 MV Pk A: 1.02 E/A: 0.80 E'Medial: 6.53 E/E' Med: 12.00 E' Laterial: 7.72 E/E' Lat: 10.20 Right Ventricle TAPSE (mm): 24.30 TVS' Sunil: 12.40 Tricuspid Valve TR Pk Sunil: 1.97 TR Pk Grad: 16.00 RA Press: 3.00 RVSP: 19.00 Great Vessels Aorta Sinus of Valsalva: 2.90 2.0-3.5 cm Ao Asc: 3.10 2.1-3.4 cm Pulmonary Valve PV Pk Sunil: 1.11 Peak PV Grad: 5.00 Updated in Other Vendor System with Status of Final Hugo Demarco MD electronically signed on 09/30/2021 3:08:10 PM with status of Final
[2021-09-30 07:38] LABS: Cholesterol 173 mg/dL; HDL Cholesterol 34 mg/dL; LDL Cholesterol Calculated 113 mg/dl; Triglycerides 133 mg/dL
[2021-09-30 07:55] VITALS: BP 145/81; PULSE 94; RESP 20; TEMP 36.1; O2SAT 93
[2021-09-30 08:44] VITALS: BP 145/81; PULSE 94; O2SAT 93
[2021-09-30] MEDS: Aspirin 325 MG TABLET PO (10:18)
[2021-09-30] MEDS: Atorvastatin Calcium 80 MG TABLET PO (10:19)
[2021-09-30] MEDS: Nicotine Polacrilex 2 MG GUM BUCCAL (10:32)
[2021-09-30 12:00] VITALS: BP 142/70; PULSE 91; RESP 20; TEMP 36.8; O2SAT 94
--- NOTE | 2021-09-30 13:21 | PM.DS ---
DS: Providers Provider Date of Service: 09/30/21 Date of admission: 09/29/21 12:56 Date of discharge: 09/30/21 Primary care physician: Caleb Gill MD Consults: 09/29/21 12:52 Consult to Neurology Routine Consulting Provider: Van Washington Reason for consultation: acute cva DS: Diagnosis Discharge Diagnosis (1) CVA (cerebral vascular accident): Status: Acute (2) Hypertension: Status: Acute (3) Heavy tobacco smoker >10 cigarettes per day: Status: Acute DS: Summary Hospital Course Hospital Course: 56 year old female with borderline hypertension and who is a current 1ppd cigarette smoker presented to the ED this morning for right sided weakness that started around 4am. Awake with weakness and numbness in the right extremities but associated this with sleep position. Woke again at 6am with persistent symptoms that were not resolving promping her to present to the ED. No prior history of similar symptoms. No history of blood clots. 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 Head CT without any acute intracranial pathology. Neurology consult recommending MRI brain showing small actue infarct within the promimal left starr radiata. No mass effect and no hemorrhagic tansformation. Mild Chronic microangiography. A saccular aneurysm projecting inferiorly from the proximal left cavernous ICA segment (seen on CTA). She has received 324mg aspirin. Hypertensive with BP 186/95. Still reporting persistent weakness and numbness right upper and lower extremities. No blurred vision, diplopia, headache, facial droop, dysphagia, dysphasia, lightheadedness. Hospital Course Seen in consultation by Neurology who recommended statin aspirin and blood pressure control. seen by PT recommended outpatient physical therapy. At this time she is medically acceptable for discharge home follow-up PCP in 2 weeks she strongly encouraged quit smoking Time Spent with Patient Time attestation: Total time spent providing and/or coordinating discharge services: Discharge coordination time: Greater than 30 minutes Quality: Safe Use of Opioids Does Pt have an Active Cancer Diagnosis on the Problem List?: No Quality: Stroke Does the patient have a stroke diagnosis?: No Physical Exam Vital Signs: Vital Signs: Last Vital Signs Temp 98.2 F 09/30/21 12:00 Pulse 91 09/30/21 12:00 Resp 20 09/30/21 12:00 BP 142/70 H 09/30/21 12:00 Pulse Ox 94 09/30/21 12:00 O2 Del Method 09/30/21 12:00 FiO2 95 09/30/21 00:24 BMI result Body Mass Index 28.6 DS: Data Data Completed and Pending Labs on day of discharge: Laboratory Results - last 24 hr 09/29/21 09/30/21 09/30/21 09:32 01:10 03:45 POC Glucose 111 Lactic Acid 1.1 Triglycerides Cholesterol LDL Cholesterol, Calc HDL Cholesterol Urine Color Yellow Urine Appearance Clear Urine pH 6.5 Ur Specific [place] <= 1.005 Urine Protein Negative Urine Glucose (UA) Negative Urine Ketones Negative Urine Blood Moderate (2+) H Urine Nitrite Negative Ur Leukocyte Esterase Negative Urine RBC 11-20 H Urine WBC 0-5 Ur Squamous Epith Cells 0-2 Urine Bacteria 1+ Hyaline Casts 0-2 09/30/21 06:38 POC Glucose Lactic Acid Triglycerides 133 Cholesterol 173 LDL Cholesterol, Calc 113 HDL Cholesterol 34 Urine Color Urine Appearance Urine pH Ur Specific [place] Urine Protein Urine Glucose (UA) Urine Ketones Urine Blood Urine Nitrite Ur Leukocyte Esterase Urine RBC Urine WBC Ur Squamous Epith Cells Urine Bacteria Hyaline Casts Discharge Plan Discharge Patient Disposition: Home, Self-Care Discharge Diagnosis: cerebral infarction Referrals: Caleb Gill MD [Primary Care Provider] - 1 Week Discharge Medications: New atorvastatin 80 mg Tablet 80 mg PO DAILY Qty: 30 0RF aspirin 325 mg Tablet 325 mg PO DAILY Qty: 30 0RF lisinopril 5 mg tablet 5 mg PO DAILY Qty: 30 0RF Continued calcium carbonate-mag hydroxid 550-110 mg Tablet,Chewable 1 tab PO DAILY acetaminophen 500 mg Tablet 1,000 mg PO Q6H PRN (Reason: Pain) ibuprofen 200 mg Tablet 400 mg PO Q8H PRN (Reason: Pain) Diet: Advance to usual diet Activity on Discharge: As tolerated Stand Alone Forms: Patient Portal Discharge page Care Plan Goals: continue Lipitor 80 mg daily along with aspirin, along with lisinopril 5 mg Health Concerns: follow-up with the PCP 2 weeks Plan of Treatment: attempt to quit smoking Assessment: see discharge summary
--- NOTE | 2021-09-30 13:35 | MHC.CM.PN ---
pt expected to dc today with outpt pt and ot
== END 2021-09-30 15:15 | disposition home or self-care (01) | DRG 45 ==
LOC: HO.ED 10:19 → HO.EDOVER 13:02 → HO.IMC 23:47
PROVIDERS: Internal Medicine; Physician Assistant Medical; Admitting Provider Physician Assistant; Emergency Provider Emergency Medicine; PCP Internal Medicine; Visit Provider Hospitalist
DX: I63.9 Cerebral infarction, unspecified (principal); G81.91 Hemiplegia, unspecified affecting right dominant side; I72.0 Aneurysm of carotid artery; R29.701 NIHSS score 1; I10 Essential (primary) hypertension; F17.210 Nicotine dependence, cigarettes, uncomplicated; Z20.822 Contact with and (suspected) exposure to COVID-19; Z87.440 Personal history of urinary (tract) infections; Z71.6 Tobacco abuse counseling; Z79.82 Long term (current) use of aspirin; Z79.899 Other long term (current) drug therapy
CPT/HCPCS: 36415; 70450; 70496; 70498; 70551; 80053; 80061; 81001; 82947; 83605; 83735; 84484; 85025; 85610; 85730; 87040; 87635; 93005; 93306; 97116; 97161; 99285; Q9967

== ENCOUNTER 2021-11-22 10:00 | Outpatient (RCR) | payer BC, SELFPAY ==
[2021-10-11 11:00] VITALS: BP 127/76
--- NOTE | 2021-10-11 13:08 | MHC.PT.EP ---
[facility] [place] Office [place] [facility] [place] Office [address] Brina Woods [address] [phone] F: [phone] F: [phone] F: [phone] F: [phone] Physical Therapy Plan of Care Date of Evaluation: Date of Surgery: Diagnosis: cva Assessment: 56 y/o RHD female referred to PT s/p CVA 09/29/21 resulting in R hemiparesis. In the ED, aspirin was administered, and tPA was not administered due to time of arrival. She was d/c home without services from the ED. She lives with her in a single level home with laundry in the basement. 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 Examination shows decreased R LE strength, decreased proprioception, impaired coordination, impaired balance and gait. Recommend PT 2x/week for 8 weeks to address impairments, implement HEP, and optimize functional mobility. Frequency and Duration: The patient will be seen 2x/week for 8 weeks Short Term Goals: 4 weeks 1 I with HEP 2. Pt will be able to perform sit to supine I without using UE to lift R LE 3. Improve R LE by one mmt grade Finish Grinder Goals: 8 weeks 1 I with HEP and self management of sx 2. Pt will be able to walk with LRAD > 500' and symmetrical gait pattern 3. Pt will perform symmetrical sit to stand without UE 5/5x 4. Improve LEFS to 40/80 (IR 26/80) Treatment Plan: Modalities to reduce pain, spasms and effusion. Manual therapy to restore motion and function. Therapeutic exercise to improve strength and flexibility. Neuromuscular re-education for posture and balance. Therapeutic activities to return to functional activities of daily living. Electronically signed by: Bella Ambrocio PT Please sign and return to therapist. Thank you for your referral.
--- NOTE | 2021-12-21 08:13 | MHC.PT.DC ---
[facility] [place] Office [place] Office [place] Office [address] Brina Woods [address] [facility] [phone] F: [phone] F: [phone] F: [phone] F: [phone] Physical Therapy Discharge Report Diagnosis: cva Date of Surgery: Date of Evaluation: 10/11/21 Date of Discharge: 12/21/21 Treatments to Date: 12 Cancellations to Date: 0 No Shows to Date: 0 Discharge Status: Improved Function Independent with HEP Discharge Summary: Pt has made steady progress with improved gait pattern, improved balance, and improved strength. Her main limitation at this time is fatigue. She has a f/u with Dr. Gill in January. At this time, will d/c to I HEP. Electronically signed by: Bella Ambrocio PT Please sign and return to therapist. Thank you for your referral.
== END 2021-12-21 08:13 | disposition home or self-care (01) ==
LOC: HO.PT 10:00
PROVIDERS: PCP Internal Medicine; Visit Provider Internal Medicine
DX: I63.9 Cerebral infarction, unspecified (principal)
CPT/HCPCS: 97110; 97112; 97162; 97530

== ENCOUNTER 2022-01-14 10:36 | Outpatient (REF) | payer BC, SELFPAY ==
[2022-01-14 14:11] LABS: MANUAL DIFF FLAG NO
[2022-01-14 14:25] LABS: Basophils Absolute Auto 0.1 X10*3/uL (0.0-0.2); Basophils Percent Auto 0.7 % (0-2); Eosinophils Absolute Auto 0.1 X10*3/uL (0.0-0.4); Eosinophils Percent Auto 0.9 % (0-4); Hematocrit 43.4 % (37.0-47.0); Hemoglobin 14.2 g/dl (12.0-16.0); Imm Gran Abs Auto 0.03 X10*3/uL (0.00-0.03); Imm Gran Pct Auto 0.3 % (0.0-0.4); Lymphocytes Absolute Auto 3.1 X10*3/uL (1.2-4.9); Lymphocytes Percent Auto 31.7 % (20-40); Mean Corpuscular HGB Conc 32.7 g/dl (31.0-35.0); Mean Corpuscular Volume 94.8 fL (80.0-98.0); Mean Platelet Volume 12.1 fL (9.4-12.3); Monocytes Absolute Auto 0.5 X10*3/uL (0.1-1.2); Monocytes Percent Auto 5.5 % (2-11); Neutrophils Absolute Auto 5.9 x10*3/uL (2.0-8.3); Neutrophils Percent Auto 60.9 % (45-73); Platelet Count 221 X10*3/uL (160-400); Red Blood Count 4.58 X10*6/uL (4.20-5.50); Red Cell Distribution Width 13.2 % (11.0-16.0); White Blood Count 9.6 X10*3/uL (4.8-10.8)
[2022-01-14 14:52] LABS: Alanine Aminotransferase 18 U/L (0-31); Albumin Level 4.3 g/dL (3.5-5.0); Alkaline Phosphatase 83 U/L (39-117); Anion Gap 14 (12-20); Aspartate Amino Transferase 16 U/L (5-31); Bilirubin Total 0.6 mg/dL (0.0-1.0); Blood Urea Nitrogen 7 mg/dL (9-16); Calcium 9.7 mg/dL (8.4-10.2); Carbon Dioxide 28 mmol/L (22-29); Chloride 103 mmol/L (96-108); Cholesterol 100 mg/dL; Estimated Glomerular Filt Rate > 60; Glucose Fasting 87 mg/dL (60-99); HDL Cholesterol 38 mg/dL; LDL Cholesterol Calculated 40 mg/dl; Potassium 4.8 mmol/L (3.3-5.1); Sodium 140 mmol/L (135-145); Thyroid Stimulating Hormone 0.25 uIU/mL (0.32-4.0); Total Protein 7.1 g/dL (6.5-8.0); Triglycerides 111 mg/dL
== END 2022-01-14 10:37 | disposition home or self-care (01) ==
LOC: HO.HMGCLDS 10:36
PROVIDERS: PCP Internal Medicine; Visit Provider Internal Medicine
DX: E03.9 Hypothyroidism, unspecified (principal); E78.5 Hyperlipidemia, unspecified; I10 Essential (primary) hypertension; Z13.0 Encounter for screening for diseases of the blood and blood-forming organs and certain disorders involving the immune mechanism
CPT/HCPCS: 36415; 80053; 80061; 84443; 85025

== ENCOUNTER 2022-04-14 10:35 | Outpatient (REF) | payer BC, SELFPAY | END 2022-04-14 10:36 | disposition home or self-care (01) | LOC: HO.LNP 10:35 | PROVIDERS: PCP Internal Medicine; Visit Provider Surgery | DX: L98.9 Disorder of the skin and subcutaneous tissue, unspecified (principal) | CPT/HCPCS: 11102; 88305 ==

== ENCOUNTER 2022-04-20 10:51 | Outpatient (REF) | payer BC, SELFPAY | END 2022-04-20 10:52 | disposition home or self-care (01) | LOC: HO.LNP 10:51 | PROVIDERS: PCP Internal Medicine; Referring Provider Internal Medicine; Visit Provider Surgery | DX: D17.1 Benign lipomatous neoplasm of skin and subcutaneous tissue of trunk (principal); Z79.899 Other long term (current) drug therapy | CPT/HCPCS: 11102; 11402; 88304 ==

== ENCOUNTER 2022-11-07 09:16 | Outpatient (REF) | payer BC, SELFPAY ==
[2022-11-07 09:56] LABS: MANUAL DIFF FLAG NO
[2022-11-07 10:35] LABS: Basophils Absolute Auto 0.1 X10*3/uL (0.0-0.2); Basophils Percent Auto 0.6 % (0-2); Eosinophils Absolute Auto 0.1 X10*3/uL (0.0-0.4); Eosinophils Percent Auto 0.8 % (0-4); Hematocrit 42.3 % (37.0-47.0); Imm Gran Abs Auto 0.03 X10*3/uL (0.00-0.03); Imm Gran Pct Auto 0.3 % (0.0-0.4); Lymphocytes Absolute Auto 2.7 X10*3/uL (1.2-4.9); Mean Corpuscular HGB Conc 33.1 g/dl (31.0-35.0); Mean Corpuscular Hemoglobin 31.5 pg (27.0-33.0); Mean Corpuscular Volume 95.3 fL (80.0-98.0); Mean Platelet Volume 11.6 fL (9.4-12.3); Monocytes Absolute Auto 0.5 X10*3/uL (0.1-1.2); Neutrophils Absolute Auto 6.3 x10*3/uL (2.0-8.3); Neutrophils Percent Auto 65.3 % (45-73); Platelet Count 208 X10*3/uL (160-400); Red Blood Count 4.44 X10*6/uL (4.20-5.50); Red Cell Distribution Width 13.4 % (11.0-16.0); White Blood Count 9.7 X10*3/uL (4.8-10.8)
[2022-11-07 11:18] LABS: Alanine Aminotransferase 27 U/L (0-31); Albumin Level 4.1 g/dL (3.5-5.0); Alkaline Phosphatase 85 U/L (39-117); Anion Gap 9 (12-20); Aspartate Amino Transferase 21 U/L (5-31); Bilirubin Total 0.5 mg/dL (0.0-1.0); Blood Urea Nitrogen 5 mg/dL (9-16); Calcium 9.6 mg/dL (8.4-10.2); Carbon Dioxide 29 mmol/L (22-29); Chloride 107 mmol/L (96-108); Cholesterol 84 mg/dL (<200); Estimated Glomerular Filt Rate > 60; Glucose Fasting 106 mg/dL (60-99); HDL Cholesterol 36 mg/dL (>40); LDL Cholesterol Calculated 29 mg/dL (<100); Potassium 4.8 mmol/L (3.3-5.1); Sodium 140 mmol/L (135-145); Total Protein 7.3 g/dL (6.5-8.0); Triglycerides 98 mg/dL (<150)
[2022-11-07 11:22] LABS: Thyroid Stimulating Hormone 0.35 uIU/mL (0.32-4.0)
== END 2022-11-07 09:17 | disposition home or self-care (01) ==
LOC: HO.LAB 09:16
PROVIDERS: PCP Internal Medicine; Visit Provider Internal Medicine
DX: E78.5 Hyperlipidemia, unspecified (principal); E03.9 Hypothyroidism, unspecified; D64.9 Anemia, unspecified; N28.9 Disorder of kidney and ureter, unspecified
CPT/HCPCS: 36415; 80053; 80061; 84443; 85025

== ENCOUNTER 2022-11-10 13:36 | Outpatient (AMB) | payer BC, SELFPAY ==
[2022-11-10 13:45] VITALS: BP 124/70; PULSE 90; O2SAT 97; BMI 28.9
--- NOTE | 2022-11-10 13:45 | MHC.PC.OV ---
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 Required: No Auto Locator: Not Required per policy Accompanied by: Self / Same As Patient Allergies No Known Allergies Allergy (Verified 11/10/22 13:46) Medication List - Last Reconciled 11/10/22 by Caleb Gill MD acetaminophen 1,000 mg PO Q6H PRN aspirin 325 mg PO DAILY atorvastatin 80 mg PO DAILY calcium carbonate-mag hydroxid 550-110 mg 1 tab PO DAILY ibuprofen 400 mg PO Q8H PRN lisinopril 5 mg PO DAILY Tobacco use date assessed: 07/27/22 Dental Screening Dental Screen Date: 11/10/22 Did you have a dental visit in the last 12 months?: Yes Did you have a dental problem in the last 6 months where you did not have access to dental care?: No Was dental information given to patient?: Patient has dentist HPI Annual P.E HPI Details HTN and cva; due for mammogram [facility] Medical History CVA (cerebral vascular accident) Heavy tobacco smoker >10 cigarettes per day Hypertension Complicated UTI (urinary tract infection) Recurrent UTI (urinary tract infection) Frequency of micturition Dysuria Surgical History Hx of local excision of skin lesion (04/14/22) Family History Father Stomach cancer Mother Sarcoidosis Social History Household Members: Spouse Housing: House Do you presently have visiting nurse or other home services: No Patient Tobacco Use Status: Current everyday Tobacco user Tobacco use type: Cigarette e-Cigarette/Vaping Use: Never Used Second Hand Smoke Exposure: No service: No Current occupational status: employed Cognitive needs: No Hearing needs: No Vision needs: Yes Questionnaire PHQ-9 Over the last 2 weeks, how often have you been bothered by any of the following problems? 1. Little interest or pleasure in doing things: not at all 2. Feeling down, depressed, or hopeless: not at all 3. Trouble falling or staying asleep, or sleeping too much: not at all 4. Feeling tired or having little energy: not at all 5. Poor appetite or overeating: not at all 6. Feeling bad about yourself - or that you are a failure or have let yourself or your family down: not at all 7. Trouble concentrating on things, such as reading the newspaper or watching television: not at all 8. Moving or speaking so slowly that other people could have noticed. Or the opposite - being so fidgety or restless that you have been moving around a lot more than usual: not at all 9. Thoughts that you would be better off or of hurting yourself in some way: not at all Total score: 0 Depression Screening Interpretation: Negative Depression Screening Done: Yes 80742 - PHQ-9 Billing: Yes Source: Developed by Drs. Jagjit Page, Joyce Roberson, Genaro Sidhu and colleagues, with an educational francie from [employer]. Thrive Questionnaire Date Thrive assessed: 02/22/22 AUDIT C Alcohol Use Questionnaire (AUDIT-C) Score Reviewed/Action Taken: Yes JUAN M-7 AMB Questionnaire JUAN M-7 Date JUAN M - 7 assessed: 02/22/22 Source: Developed by Drs. Jagjit Page, Joyce Roberson, Genaro Sidhu and colleagues, with an educational francie from [employer]. Review of Systems Const Denies chills, Denies fatigue, Denies headache(s) and Denies weight loss Eyes Denies change in vision, Denies diplopia and Denies eye pain ENT Denies vertigo, Denies dizziness, Denies headache(s) and Denies nasal discharge Card Denies chest pain, Denies rapid heart rate and Denies dyspnea on exertion Resp Denies chest congestion, Denies cough, Denies pain with cough and Denies dyspnea on exertion GI Denies abdominal pain, Denies hematochezia and Denies change in bowel habits Musc Denies myalgias, Denies arthralgias and Denies joint swelling Skin/Breast Denies lesions and Denies unusual bruising Neuro Denies vertigo, Denies dizziness, Denies headache(s) and Denies focal weakness Endo Denies fatigue Physical exam (Primary Care) Vital Signs: Last Vital Signs Pulse 90 11/10/22 13:45 BP 124/70 11/10/22 13:45 Pulse Ox 97 11/10/22 13:45 Oxygen Delivery Method Room Air 11/10/22 13:45 BMI result Body Mass Index 28.9 Tobacco/Smoking Status: Tobacco use Status Tobacco use date assessed 07/27/22 11/10/22 13:46 Patient Tobacco Use Status Current everyday Tobacco 11/10/22 13:46 Tobacco use type Cigarette 11/10/22 13:46 e-Cigarette/Vaping Use Never Used 11/10/22 13:46 PHQ-9: PHQ-9 Score PHQ-9: Total score 0 11/10/22 13:46 Depression Screening Interpretation: Negative Thrive Assessment: Date of Thrive Assessment Date Thrive assessed 02/22/22 11/10/22 13:46 Const General: cooperative, healthy appearing and no acute distress Orientation/consciousness: oriented to person, oriented to place and oriented to time HENMT Head: Yes normal to inspection, Yes normocephalic and Yes atraumatic Mouth: Normal oral and palatal mucosa present and tongue normal Throat: Yes posterior oropharynx normal and Yes uvula midline Eyes General: appearance normal, both eyes and all related structures Neck Neck: Yes normal visual inspection, Yes full ROM and Yes no lymphadenopathy Thyroid: Thyroid normal Carotids: normal carotid upstroke Chest Chest palpation & inspection: normal inspection of the chest Resp Effort & Inspection: normal respiratory effort and able to speak in complete sentences Auscultation: clear to auscultation bilaterally Cardio Jugular venous distension: no JVD Palpation: normal PMI Rate: regular rate Rhythm: regular rhythm Heart sounds: S1 normal heart sound present and S2 normal heart sound present GI Inspection: Yes normal to inspection Palpation (GI): Soft to palpation and No hepatosplenomegaly present Auscultation: normal bowel sounds General: Yes no CVA tenderness Back/Spine/Pelvis Back: no CVA tenderness Skin General skin exam: no rashes or lesions noted Neuro General: oriented to person, oriented to place and oriented to time Extrem General: Yes normal to inspection and Yes full ROM Assessment and Plan Assessment & Plan (1) Physical exam: Code(s): Z00.00 - Encounter for general adult medical examination without abnormal findings Plan: do labs and mammo (2) Hypertension: Code(s): I10 - Essential (primary) hypertension Plan: stable; same rx (3) Cerebral infarction: Code(s): I63.9 - Cerebral infarction, unspecified Plan: stable Orders: Orders MM tomosynthesis screen imp BI Today Z12.31 - Encounter for screening mammogram for malignant neoplasm of breast Lipid Panel Today E78.5 - Hyperlipidemia, unspecified Coding Level of Care Code Est Pt Prev Care 40-64y(42200) Diagnoses Physical exam Z00.00 Hypertension I10 Cerebral infarction I63.9
== END 2022-11-10 14:11 | disposition home or self-care (01) ==
PROVIDERS: PCP Internal Medicine; Visit Provider Internal Medicine
DX: Z00.00 Encounter for general adult medical examination without abnormal findings (principal); I10 Essential (primary) hypertension; I63.9 Cerebral infarction, unspecified
CPT/HCPCS: 99396

== ENCOUNTER 2022-12-23 08:55 | Outpatient (REF) | payer BC, SELFPAY ==
--- NOTE | ~2022-12-23 | MM_ITS ---
EXAMINATION: MM SCREENING DIGITAL BREAST TOMOSYNTHESIS, BILATERAL CLINICAL INFORMATION: Screening. Asymptomatic. The patient reports having had a benign percutaneous right breast biopsy in the remote past. COMPARISON: Mammography: There are no prior mammograms available for comparison. This study will function as a new baseline. TECHNIQUE: Digital breast tomosynthesis is performed in both the craniocaudal and mediolateral oblique views along with computer-aided detection (CAD). Synthesized 2D images are generated from the tomosynthesis. FINDINGS: The breasts are heterogeneously dense, which may obscure small masses (ACR BI-RADS breast composition Category c). There are no significant masses, abnormal calcifications, or other abnormalities. There is a tissue marker present in the upper outer quadrant of the right breast from prior benign percutaneous biopsy. There are few, bilateral, benign calcifications. MM/MM tomosynthesis screening BI IMPRESSION: No mammographic evidence of malignancy. ASSESSMENT: BI-RADS BI-RADS 2 - Benign Findings RECOMMENDATION: Routine annual mammography screening. 1 year F/U This examination should not preclude the clinical evaluation of a suspicious palpable abnormality. This patient's information was entered into a reminder system with a target due date for their next mammogram.
== END 2022-12-23 08:56 | disposition home or self-care (01) ==
LOC: HO.MAMMO 08:55
PROVIDERS: PCP Internal Medicine; Visit Provider Internal Medicine
DX: Z12.31 Encounter for screening mammogram for malignant neoplasm of breast (principal)
CPT/HCPCS: 77063; 77067

== ENCOUNTER → 2022-12-23 09:00 | Outpatient (BNV) | payer BC, SELFPAY | PROVIDERS: PCP Internal Medicine; Visit Provider Radiology Diagnostic Radiology | DX: Z12.31 Encounter for screening mammogram for malignant neoplasm of breast (principal) | CPT/HCPCS: 77063; 77067 ==

== ENCOUNTER 2023-02-23 13:30 | Outpatient (AMB) | payer BC, SELFPAY ==
[2023-02-23 13:31] VITALS: BP 132/62; PULSE 90; O2SAT 98; BMI 28.7
--- NOTE | 2023-02-23 13:31 | A.OFFPC_ITS ---
Vital Signs 02/23/23 13:31 Height 5 ft 2 in Weight 157 lb BMI 28.7 BP 132/62 Blood Pressure Location Lt brachial Position Sitting Pulse 90 Pulse Source Pulse Oximeter Pulse Oximetry (%) 98 Oxygen Delivery Method Room Air Intake Visit Reasons: 3 month f/u Adjunct Writing Instructor Required: No Irrigation Installation Specialist: Not Required per policy Accompanied by: Self / Same As Patient Allergies No Known Allergies Allergy (Verified 02/23/23 13:32) Medication List - Last Reconciled 02/23/23 by Caleb Gill MD acetaminophen 1,000 mg PO Q6H PRN aspirin 325 mg PO DAILY atorvastatin 80 mg PO DAILY calcium carbonate-mag hydroxid 550-110 mg 1 tab PO DAILY ibuprofen 400 mg PO Q8H PRN lisinopril 5 mg PO DAILY Tobacco use date assessed: 02/23/23 Dental Screening Dental Screen Date: 02/23/23 Did you have a dental visit in the last 12 months?: Yes Did you have a dental problem in the last 6 months where you did not have access to dental care?: No Was dental information given to patient?: Patient has dentist HPI 3 month f/u HPI Details HTN on Rx; doing well and compliant [facility] Medical History CVA (cerebral vascular accident) Heavy tobacco smoker >10 cigarettes per day Hypertension Complicated UTI (urinary tract infection) Recurrent UTI (urinary tract infection) Frequency of micturition Dysuria Surgical History Hx of local excision of skin lesion (04/14/22) Family History Father Stomach cancer Mother Sarcoidosis Social History Household Members: Spouse Housing: House Do you presently have visiting nurse or other home services: No Patient Tobacco Use Status: Current everyday Tobacco user Tobacco use type: Cigarette e-Cigarette/Vaping Use: Never Used Second Hand Smoke Exposure: No service: No Current occupational status: employed Cognitive needs: No Hearing needs: No Vision needs: Yes Questionnaire PHQ-9 Over the last 2 weeks, how often have you been bothered by any of the following problems? 1. Little interest or pleasure in doing things: not at all 2. Feeling down, depressed, or hopeless: not at all 3. Trouble falling or staying asleep, or sleeping too much: not at all 4. Feeling tired or having little energy: not at all 5. Poor appetite or overeating: not at all 6. Feeling bad about yourself - or that you are a failure or have let yourself or your family down: not at all 7. Trouble concentrating on things, such as reading the newspaper or watching television: not at all 8. Moving or speaking so slowly that other people could have noticed. Or the opposite - being so fidgety or restless that you have been moving around a lot more than usual: not at all 9. Thoughts that you would be better off or of hurting yourself in some way: not at all Total score: 0 Depression Screening Interpretation: Negative Depression Screening Done: Yes 59568 - PHQ-9 Billing: Yes Source: Developed by Drs. Jagjit Page, Joyce Roberson, Genaro Sidhu and colleagues, with an educational francie from [employer] Thrive Questionnaire Date Thrive assessed: 02/23/23 I am a: Patient What is your living situation today?: I have a steady place to live Within the past 12 months, did the food you bought not last and you didn't have the money to get more?: Never true Within the past 12 months, did you worry whether your food would run out before you got money to buy more?: Never true Do you have trouble paying for medicines?: No Do you have trouble getting transportation to medical appointments?: No Do you have trouble paying your heating and electricity bill?: No Do you have trouble taking care of your child, family member or friend?: No Do you have trouble with day-to-day activities such as bathing, preparing meals, shopping, managing finances, etc.?: No Are you currently unemployed and looking for a job?: No Are you interested in more education?: No Please select the resources that you would like help with: None THRIVE Score: 0 AUDIT C Alcohol Use Questionnaire (AUDIT-C) 1. How often do you have a drink containing alcohol?: Never Total Score: 0 Score Reviewed/Action Taken: Yes JUAN M-7 AMB Questionnaire JUAN M-7 Date JUAN M - 7 assessed: 02/23/23 Feeling nervous, anxious, or on edge: 0 = Not at all Not being able to stop or control worryin = Not at all Worrying too much about different things: 0 = Not at all Trouble relaxin = Not at all Being so restless that it is hard to sit still: 0 = Not at all Becoming easily annoyed or irritable: 0 = Not at all Feeling afraid as if something awful might happen: 0 = Not at all Total JUAN M-7 score (0-4 normal; 5-9 mild; 10-14 moderate; 15-21 severe): 0 Source: Developed by Drs. Jagjit Page, Joyce Roberson, Genaro Sidhu and colleagues, with an educational francie from [employer] Review of Systems Const Denies chills, Denies headache(s) and Denies weight loss ENT Denies headache(s) Card Denies chest pain, Denies syncope, Denies irregular heart rhythm and Denies dyspnea Resp Denies chest congestion, Denies cough and Denies dyspnea GI Denies abdominal pain, Denies change in stool character, Denies nausea and Denies vomiting Musc Denies deformity and Denies joint swelling Neuro Denies syncope and Denies headache(s) Physical exam (Primary Care) Vital Signs: Last Vital Signs Pulse 90 02/23/23 13:31 BP 132/62 02/23/23 13:31 Pulse Ox 98 02/23/23 13:31 Oxygen Delivery Method Room Air 02/23/23 13:31 BMI result Body Mass Index 28.7 Tobacco/Smoking Status: Tobacco use Status Tobacco use date assessed 02/23/23 02/23/23 13:37 Patient Tobacco Use Status Current everyday Tobacco 02/23/23 13:37 Tobacco use type Cigarette 02/23/23 13:37 e-Cigarette/Vaping Use Never Used 02/23/23 13:37 PHQ-9: PHQ-9 Score PHQ-9: Total score 0 02/23/23 13:53 Depression Screening Interpretation: Negative Thrive Assessment: Date of Thrive Assessment Date Thrive assessed 02/23/23 02/23/23 13:37 Const General: cooperative, comfortable, no acute distress and alert Neck Neck: Yes no lymphadenopathy Thyroid: Thyroid normal Resp Effort & Inspection: normal respiratory effort Auscultation: clear to auscultation bilaterally Percussion: percussion normal Cardio Jugular venous distension: no JVD Palpation: normal PMI Rate: regular rate Rhythm: regular rhythm Heart sounds: S1 normal heart sound present and S2 normal heart sound present GI Inspection: Yes normal to inspection Palpation (GI): No hepatosplenomegaly present Skin General skin exam: no rashes or lesions noted Extrem General: Yes no clubbing, cyanosis or edema Office Procedures Flu Questionnaire Does the patient have a severe egg allergy?: No Does the patient have severe life threatening allergies?: No Does the patient have a fever or illness today?: No Has the patient ever had Guillain-[place] Syndrome?: No Has the patient ever had any past reaction to a flu shot?: No Immunizations flu vacc [id number] 6mos up(PF) 60 mcg(15 mcgx4)/0.5 mL IM syringe Performing Provider: Caleb Gill MD Performing Location: [facility] Administered by: FANTASMA Puri on 02/23/23 13:54 Dose Route Admin Location Dispensed Lot Number Expiration Date NDC Check Scaler 0.5 mL IM Left Deltoid 0.5 mL [id number] 08/05/23 39699-943-47 [employer] VIS Given Date VIS Provided VIS Publication Date 02/23/23 Single Vaccine 20 Eligibility Eligibility Date Funding Source Not [facility] Eligible 02/23/23 Private Assessment and Plan Assessment & Plan (1) Hypertension: Code(s): I10 - Essential (primary) hypertension Plan: stable; same rx Orders: Orders Lipid Panel Today E78.5 - Hyperlipidemia, unspecified Influenza [id number] Immunization Today Z23 - Encounter for immunization Coding Level of Care Code Est Pt Level 3 (86345) Diagnoses Hypertension I10
== END 2023-02-23 13:58 | disposition home or self-care (01) ==
PROVIDERS: PCP Internal Medicine; Visit Provider Internal Medicine
DX: Z23 Encounter for immunization (principal); I10 Essential (primary) hypertension
CPT/HCPCS: 90471; 90686; 99213

== ENCOUNTER 2023-05-31 10:06 | Outpatient (AMB) | payer BC, SELFPAY ==
--- NOTE | 2023-05-31 10:06 | MHC.PC.OV ---
Vital Signs 05/31/23 10:07 Height 5 ft 2 in Weight 160 lb BMI 29.3 BP 128/60 Blood Pressure Location Lt brachial Position Sitting Pulse 95 Pulse Source Pulse Oximeter Pulse Oximetry (%) 98 Oxygen Delivery Method Room Air Intake Visit Reasons: 3 month f/u Clearing Supervisor Required: No Joiners Supervisor: Not Required per policy Accompanied by: Self / Same As Patient Allergies No Known Allergies Allergy (Verified 05/31/23 10:07) Medication List - Last Reconciled 05/31/23 by Caleb Gill MD acetaminophen 1,000 mg PO Q6H PRN aspirin 325 mg PO DAILY ibuprofen 400 mg PO Q8H PRN lisinopril 5 mg PO DAILY Tobacco use date assessed: 02/23/23 Dental Screening Dental Screen Date: 02/23/23 HPI 3 month f/u HPI Details HTN on Rx; doing well and compliant [facility] Medical History CVA (cerebral vascular accident) Heavy tobacco smoker >10 cigarettes per day Hypertension Complicated UTI (urinary tract infection) Recurrent UTI (urinary tract infection) Frequency of micturition Dysuria Surgical History Hx of local excision of skin lesion (04/14/22) Family History Father Stomach cancer Mother Sarcoidosis Social History Household Members: Spouse Housing: House Do you presently have visiting nurse or other home services: No Patient Tobacco Use Status: Current everyday Tobacco user Tobacco use type: Cigarette e-Cigarette/Vaping Use: Never Used Second Hand Smoke Exposure: No service: No Current occupational status: employed Cognitive needs: No Hearing needs: No Vision needs: Yes Questionnaire Thrive Questionnaire Date Thrive assessed: 02/23/23 JUAN M-7 AMB Questionnaire JUAN M-7 Date JUAN M - 7 assessed: 02/23/23 Source: Developed by Drs. Jagjit Page, Joyce Roberson, Genaro Sidhu and colleagues, with an educational francie from [employer] Review of Systems Const Denies chills, Denies headache(s) and Denies weight loss ENT Denies headache(s) Card Denies chest pain, Denies syncope, Denies irregular heart rhythm and Denies dyspnea Resp Denies chest congestion, Denies cough and Denies dyspnea GI Denies abdominal pain, Denies change in stool character, Denies nausea and Denies vomiting Musc Denies deformity and Denies joint swelling Neuro Denies syncope and Denies headache(s) Physical exam (Primary Care) Vital Signs: Last Vital Signs Pulse 95 05/31/23 10:07 BP 128/60 05/31/23 10:07 Pulse Ox 98 05/31/23 10:07 Oxygen Delivery Method Room Air 05/31/23 10:07 BMI result Body Mass Index 29.3 Tobacco/Smoking Status: Tobacco use Status Tobacco use date assessed 02/23/23 05/31/23 10:10 Patient Tobacco Use Status Current everyday Tobacco 05/31/23 10:10 Tobacco use type Cigarette 05/31/23 10:10 e-Cigarette/Vaping Use Never Used 05/31/23 10:10 Thrive Assessment: Date of Thrive Assessment Date Thrive assessed 02/23/23 05/31/23 10:10 Const General: cooperative, comfortable, no acute distress and alert Neck Neck: Yes no lymphadenopathy Thyroid: Thyroid normal Resp Effort & Inspection: normal respiratory effort Auscultation: clear to auscultation bilaterally Percussion: percussion normal Cardio Jugular venous distension: no JVD Palpation: normal PMI Rate: regular rate Rhythm: regular rhythm Heart sounds: S1 normal heart sound present and S2 normal heart sound present GI Inspection: Yes normal to inspection Palpation (GI): No hepatosplenomegaly present Skin General skin exam: no rashes or lesions noted Extrem General: Yes no clubbing, cyanosis or edema Assessment and Plan Assessment & Plan (1) Hypertension: Code(s): I10 - Essential (primary) hypertension Plan: stable; same rx Coding Level of Care Code Est Pt Level 3 (55967) Diagnoses Hypertension I10
[2023-05-31 10:07] VITALS: BP 128/60; PULSE 95; O2SAT 98; BMI 29.3
== END 2023-05-31 10:35 | disposition home or self-care (01) ==
PROVIDERS: PCP Internal Medicine; Visit Provider Internal Medicine
DX: I10 Essential (primary) hypertension (principal)
CPT/HCPCS: 99213

== ENCOUNTER → 2023-07-03 15:45 | Outpatient (RCR) | payer BC, SELFPAY ==
--- NOTE | 2022-02-15 11:11 | MHC.OT.DC ---
[address] [phone] F: [phone] Occupational Therapy Discharge Note Provider: Caleb Gill Diagnosis: Cerebral infarct Date of Surgery: Date of Evaluation: 10/13/21 Date of Discharge: Treatments to Date: 4 Cancellations to Date: No Shows to Date: Discharge Status: Improved Function Independent with HEP Visit Non-compliance Discharge Summary: Jeanie is making excellent gains in OT with significant improvement in right hand coordination as evidenced by >20 sec improvement on the functional dexterity test and 10# gain in right gross grasp strength. Pt. reports she is typing with increased ease at work and is able to use right hand to lift and carry her coffee cup, 1/2 gallon of milk, etc. Primary complaints are decreased functional endurance and right hand strength/coordination is not yet at baseline. Pt. remains motivated fot tx. Continued skilled OT is recommended for one more month to reach max functional potential and progress to LTG's. 02/15 - Pt. was progressing well in OT although did not follow up with future appointments. Pt. had returned to work and made functional gains. Electronically Signed By: Jacqueline Hackett MS OTR/L Reviewed/agree with student documentation: N/A Therapist: Please Sign and return to therapist, thank you for your referral.
== END | disposition home or self-care (01) ==
LOC: HO.OT 10-13 12:47
PROVIDERS: PCP Internal Medicine; Visit Provider Internal Medicine
DX: I63.9 Cerebral infarction, unspecified (principal)
CPT/HCPCS: 97110; 97165

== ENCOUNTER 2023-08-31 09:48 | Outpatient (AMB) | payer BC, SELFPAY ==
[2023-08-31 09:49] VITALS: BP 122/72; PULSE 94; O2SAT 98; BMI 28.5
--- NOTE | 2023-08-31 09:49 | MHC.PC.OV ---
Vital Signs 08/31/23 09:49 Height 5 ft 2 in Weight 156 lb BMI 28.5 BP 122/72 Blood Pressure Location Lt brachial Position Sitting Pulse 94 Pulse Source Pulse Oximeter Pulse Oximetry (%) 98 Oxygen Delivery Method Room Air Intake Visit Reasons: 3mth f/u Continuous Washer Operator: Not Required per policy Accompanied by: Self / Same As Patient Allergies No Known Allergies Allergy (Verified 08/31/23 09:49) Medication List - Last Reconciled 08/31/23 by Caleb Gill MD acetaminophen 1,000 mg PO Q6H PRN aspirin 325 mg PO DAILY ibuprofen 400 mg PO Q8H PRN lisinopril 5 mg PO DAILY Tobacco use date assessed: 02/23/23 Dental Screening Dental Screen Date: 02/23/23 HPI 3mth f/u HPI Details hypertension on rx; doing well; compliant [facility] Medical History CVA (cerebral vascular accident) Heavy tobacco smoker >10 cigarettes per day Hypertension Complicated UTI (urinary tract infection) Recurrent UTI (urinary tract infection) Frequency of micturition Dysuria Surgical History Hx of local excision of skin lesion (04/14/22) Family History Father Stomach cancer Mother Sarcoidosis Social History Household Members: Spouse Housing: House Do you presently have visiting nurse or other home services: No Patient Tobacco Use Status: Current everyday Tobacco user Tobacco use type: Cigarette e-Cigarette/Vaping Use: Never Used Second Hand Smoke Exposure: No service: No Current occupational status: employed Cognitive needs: No Hearing needs: No Vision needs: Yes Questionnaire Thrive Questionnaire Date Thrive assessed: 02/23/23 JUAN M-7 AMB Questionnaire JUAN M-7 Date JUAN M - 7 assessed: 02/23/23 Source: Developed by Drs. Jagjit Page, Joyce Roberson, Genaro Sidhu and colleagues, with an educational francie from [employer] Review of Systems Const Denies chills, Denies headache(s) and Denies weight loss ENT Denies headache(s) Card Denies chest pain, Denies syncope, Denies irregular heart rhythm and Denies dyspnea Resp Denies chest congestion, Denies cough and Denies dyspnea GI Denies abdominal pain, Denies change in stool character, Denies nausea and Denies vomiting Musc Denies deformity and Denies joint swelling Neuro Denies syncope and Denies headache(s) Physical exam (Primary Care) Vital Signs: Last Vital Signs Pulse 94 08/31/23 09:49 BP 122/72 08/31/23 09:49 Pulse Ox 98 08/31/23 09:49 Oxygen Delivery Method Room Air 08/31/23 09:49 BMI result Body Mass Index 28.5 Tobacco/Smoking Status: Tobacco use Status Tobacco use date assessed 02/23/23 08/31/23 09:49 Patient Tobacco Use Status Current everyday Tobacco 08/31/23 09:49 Tobacco use type Cigarette 08/31/23 09:49 e-Cigarette/Vaping Use Never Used 08/31/23 09:49 Thrive Assessment: Date of Thrive Assessment Date Thrive assessed 02/23/23 08/31/23 09:49 Const General: cooperative, comfortable, no acute distress and alert Neck Neck: Yes no lymphadenopathy Thyroid: Thyroid normal Resp Effort & Inspection: normal respiratory effort Auscultation: clear to auscultation bilaterally Percussion: percussion normal Cardio Jugular venous distension: no JVD Palpation: normal PMI Rate: regular rate Rhythm: regular rhythm Heart sounds: S1 normal heart sound present and S2 normal heart sound present GI Inspection: Yes normal to inspection Palpation (GI): No hepatosplenomegaly present Skin General skin exam: no rashes or lesions noted Extrem General: Yes no clubbing, cyanosis or edema Assessment and Plan Assessment & Plan (1) Hypertension: Code(s): I10 - Essential (primary) hypertension Plan: stable; same rx Orders: Orders Comprehensive Elfrida. Panel Fast Today Z13.9 - Encounter for screening, unspecified Thyroid Stimulating Hormone Today Z13.29 - Encounter for screening for other suspected endocrine disorder Lipid Panel Today Z13.220 - Encounter for screening for lipoid disorders Complete Blood Count Auto Diff Today Z13.0 - Encounter for screening for diseases of the blood and blood-forming organs and certain disorders involving the immune mechanism Medications: Refilled lisinopril 5 mg PO DAILY 90 tabs 1RF Coding Level of Care Code Est Pt Level 3 (81529) Diagnoses Hypertension I10
== END 2023-08-31 10:17 | disposition home or self-care (01) ==
PROVIDERS: PCP Internal Medicine; Visit Provider Internal Medicine
DX: I10 Essential (primary) hypertension (principal)
CPT/HCPCS: 99213

== ENCOUNTER 2023-11-12 00:46 | Inpatient (IN) | payer BC, SELFPAY ==
[2023-11-12] VITALS (38 sets, daily range): BP systolic 90–164; BP diastolic 42–83; PULSE 75–112; RESP 12–24; TEMP 36.4–36.9; O2SAT 91–99; BMI 28.1; BMI 28.6
--- NOTE | ~2023-11-12 | CT_ITS ---
EXAMINATION: CT HEAD WITHOUT CONTRAST (STROKE PROTOCOL) CLINICAL INFORMATION: Stroke protocol. Right-sided weakness. COMPARISON: CT head and CT angiography head and neck 09/29/2021. MRI brain 09/29/2021 TECHNIQUE: Contiguous axial imaging was performed from the skull base to vertex without intravenous administration of contrast. This CT examination was performed using dose optimization techniques as appropriate, variously including the following: *Automated exposure control *Adjustment of mA and/or kV according to patient size (this includes techniques or standardized protocols for targeted exams where dose is matched to indication/reason for exam; i.e. extremities or head) *Use of iterative reconstruction technique DLP: 582 mGy-cm FINDINGS: Unenhanced CT of the head: No intracranial hemorrhage, tumors or acute infarcts identified. Focal encephalomalacia over an approximately 1 cm region is present in the posterior left starr radiata corresponds to an area of chronic encephalomalacia corresponding to the acute infarct noted on the comparison MRI of the brain 09/29/2021. The ventricles and sulci are normal in size and configuration. Normal appearance of the orbits and globes. No significant opacification of the visualized paranasal sinuses, mastoid air cells and middle ear cavities. No abnormal extra-axial fluid collections. CT/CT head for stroke IMPRESSION: *No acute intracranial abnormalities identified. *Chronic focal infarct within the left starr radiata corresponding to the prior acute infarct present on the comparison MRI of the brain 09/29/2021. This critical result was discussed with Jeb See MD MD by telephone at 11/12/2023 1:30 AM EDT and it was ascertained that the content and urgency of the report was understood at the time of direct communication. Electronically signed by: Jonas Durham MD 11/12/2023 01:32 AM EDT
--- NOTE | ~2023-11-12 | CT_ITS ---
EXAMINATION: CT HEAD WITHOUT CONTRAST CLINICAL INFORMATION: Status post TNK infusion. Right upper and lower extremity paresthesia. COMPARISON: Brain MRI from 11/12/2023. TECHNIQUE: Contiguous axial imaging was performed from the skull base to vertex without intravenous administration of contrast. This CT examination was performed using dose optimization techniques as appropriate, variously including the following: *Automated exposure control. *Adjustment of mA and/or kV according to patient size (this includes techniques or standardized protocols for targeted exams where dose is matched to indication/reason for exam; i.e. extremities or head). *Use of iterative reconstruction technique. DLP: 617 mGy-cm FINDINGS: There is chronic encephalomalacia within the left centrum semiovale white matter with associated volume loss. No additional loss of espinal-white matter differentiation. No evidence of acute intracranial hemorrhage. A few foci of hypoattenuation in the periventricular and deep white matter are consistent with mild microangiopathy. The ventricles are normal in morphology and size. No evidence for obstructive hydrocephalus. No abnormal mass effect or midline shift. No extra-axial fluid collections. Calcific atherosclerotic disease of the intracranial internal carotid and vertebral arteries. No hyperdense vessel sign. No acute soft tissue or osseous abnormalities. Mild mucosal thickening of the paranasal sinuses. The mastoid air cells and middle ear cavities are clear. CT/CT head/brain wo IV con IMPRESSION: 1. No evidence of acute intracranial hemorrhage or edematous territorial infarction. 2. Chronic encephalomalacia within the left centrum semiovale white matter. Mild underlying microangiopathy. Electronically signed by: Scotty Salgado DO 11/12/2023 04:16 PM EDT
--- NOTE | ~2023-11-12 | MR_ITS ---
EXAMINATION: MR BRAIN WITHOUT CONTRAST CLINICAL INFORMATION: Right upper and lower extremity paresthesias. COMPARISON: CT angiogram of the head and neck 11/12/2023. TECHNIQUE: MRI of the brain was obtained using routine sequences without contrast. FINDINGS: There is a chronic lacunar infarct within the left centrum semiovale along the expected course of the left corticospinal tract. Scattered nonspecific foci of T2 FLAIR signal hyperintensity are also visualized within the periventricular white matter most likely represent a chronic manifestation of small vessel ischemia. No acute territorial infarct. No pathological magnetic susceptibility artifact. Intracranial vascular flow voids are grossly maintained. There is no intracranial mass effect or midline shift. No abnormal extra-axial collection. Lateral and third ventricles are normal. No hydrocephalus. Midline structures including the cervicomedullary junction are normal. No acute bone marrow signal changes. There is no mastoid or middle ear effusion. Trivial mucosal thickening within the ethmoid air cells. Globes and orbits are symmetric. MR/MR head/brain wo con IMPRESSION: There is a chronic lacunar infarct within the left centrum semiovale along the expected course of the left corticospinal tract. Scattered chronic small vessel ischemic changes are also visualized within the periventricular white matter. No evidence of acute territorial infarct or hemorrhage. Electronically signed by: Jagjit Gore MD 11/12/2023 10:24 AM EDT
--- NOTE | ~2023-11-12 | CT_ITS ---
EXAMINATION: CTA NECK WITH CONTRAST (STROKE) CTA BRAIN WITH CONTRAST (STROKE) CLINICAL INFORMATION: Suspect acute stroke. Assess for major vessel occlusion. Please call report. COMPARISON: Unenhanced CT head 11/12/2023, MRI brain 09/29/2021, CT head 09/29/2021 TECHNIQUE: CTA of the head and neck was performed in the axial plane from the mediastinum to the skull vertex using 70 mL Omnipaque 350 intravenous contrast. Additional reformatted multiplanar images including maximum intensity projection MIP images are generated on the CT workstation. This CT examination was performed using dose optimization techniques as appropriate, variously including the following: *Automated exposure control *Adjustment of mA and/or kV according to patient size (this includes techniques or standardized protocols for targeted exams where dose is matched to indication/reason for exam; i.e. extremities or head) *Use of iterative reconstruction technique DLP: 1335 mGy-cm FINDINGS: The degree of stenosis determined by criteria similar to NASCET. Brain: Delayed IV contrast and CT of the head: No intracranial hemorrhage, tumors or acute infarcts identified. Focal encephalization again noted in the left starr radiata as noted on the comparison CT of the head 11/12/2023. Normal appearance of the orbits and globes. No significant opacification of the visualized paranasal sinuses, mastoid air cells and middle ear cavities. . CT angiography neck: Mild scattered calcific plaque within the transverse aorta. Conventional branching anatomy of the great vessels in relation to the transverse aorta. Patent visualized components of the subclavian arteries. Bilateral carotid bulb nonocclusive eccentric calcific nonulcerative atherosclerotic plaques. The left vertebral artery is dominant. No cervical vertebral artery system stenoses, occlusions or dissections. CT angiography head: type origin of the left posterior cerebral artery. Mild nonocclusive segmental calcific atherosclerotic plaques within the cavernous portions of the internal carotid arteries. No intracranial large vessel occlusions noted. No intracranial stenoses, occlusions or aneurysms identified. Visualized lung apices are clear. Normal appearance of the thyroid. No cervical lymphadenopathy. Mild to moderate multilevel facet hypertrophic changes. No cervical vertebral body compression deformities or focal subluxations. CT/CT angio head neck stroke IMPRESSION: IV contrast enhanced CT the head: *No acute intracranial abnormalities. *Chronic focal infarct within the left starr radiata. CT angiography head: *No intracranial large vessel occlusions. *Nonocclusive segmental calcific atherosclerosis of the cavernous portions of the left and right internal carotid arteries. CT angiography neck: *Mild nonocclusive eccentric nonulcerative calcific atherosclerosis of the left and right carotid bulbs. Electronically signed by: Jonas Durham MD 11/12/2023 01:58 AM EDT
--- NOTE | 2023-11-12 01:06 | ED.NEUROSD ---
HPI - Neuro Symptoms/Deficit General Chief Complaint: Weakness Stated Complaint: stroke ? right side numbness Time Seen by Provider: 11/12/23 01:06 Source: patient Mode of arrival: ambulatory Limitations: no limitations History of Present Illness ED Provider: kimberly BABCOCK Narrative: Patient with history of left CVA in 09/26 on aspirin was doing well until 23:30 last night when she noticed similar tingling sensation and heaviness of the right hand and having difficulty in walking no speech problem no facial asymmetry patient has walked to the ER slight limping on the right side prior to this patient was taking Dena aspirin and had very minimal weakness on the right side Related Data Home Medications ?Medication ?Instructions ?Recorded ?Confirmed acetaminophen 500 mg tablet 1,000 mg PO Q6H PRN Pain 09/29/21 08/31/23 ibuprofen 200 mg tablet 400 mg PO Q8H PRN Pain 09/29/21 08/31/23 Previous Rx's ?Medication ?Instructions ?Recorded aspirin 325 mg tablet 325 mg PO DAILY #30 tabs 11/02/22 lisinopril 5 mg tablet 5 mg PO DAILY #90 tabs 09/12/23 Allergies Allergy/AdvReac Type Severity Reaction Status Date / Time No Known Allergies Allergy Verified 11/12/23 01:04 Review of Systems Review of Systems: Yes all other systems are reviewed and are negative PMFSH Past Medical History Medical History CVA (cerebral vascular accident) Heavy tobacco smoker >10 cigarettes per day Hypertension Complicated UTI (urinary tract infection) Recurrent UTI (urinary tract infection) Frequency of micturition Dysuria Surgical History Hx of local excision of skin lesion (04/14/22) Family History Family History Father Stomach cancer Mother Sarcoidosis Social History Social History Household Members: Spouse Housing: House Do you presently have visiting nurse or other home services: No Patient Tobacco Use Status: Current everyday Tobacco user Tobacco use type: Cigarette Smoked in Last 30 Days: Yes e-Cigarette/Vaping Use: Never Used Second Hand Smoke Exposure: No Use of substances other than those prescribed or required for medical reasons: No Advance Directives: No Advance Directives Information Provided: Yes Patient : No service: No Current occupational status: employed Cognitive needs: No Hearing needs: No Vision needs: Yes Physical Exam Vital Signs: Vital Signs: Last Vital Signs Temp 98.5 F 11/12/23 01:11 Pulse 84 11/12/23 01:43 Resp 12 11/12/23 01:43 BP 149/83 H 11/12/23 01:43 Pulse Ox 99 11/12/23 01:43 O2 Del Method Room Air 11/12/23 01:43 BMI result Body Mass Index 28.1 Appearance: Alert. Oriented X3. No acute distress. Eyes: PERRLA, No Nystagmus ENT: Pharynx normal. Oral Mucosa moist Neck: Normal inspection. Neck supple. CVS: Normal heart rate and rhythm. Pulses normal. Respiratory: No respiratory distress. Equal air entry bilateral, no wheezing/rales/rhonchi Abdomen: Soft and nontender. Bowel sounds are present, no mass palpable, no CVA tenderness Skin: Skin warm and dry. Normal skin color. Normal skin turgor. Extremities: No lower extremity edema. No calf tenderness Neuro: Oriented X 3. Right-sided 4/5 left 5/5 No sensory deficit.No cerebellar signs , cranial nerves II-XII intact Medications Administered Discontinued Medications Generic Name Dose Route Start Last Admin Trade Name Freq PRN Reason Stop Dose Admin Iohexol 70 ml 11/12/23 01:24 11/12/23 01:24 Iohexol 350 Mg/Ml 100 Ml Infus..Btl IV 11/12/23 01:25 70 ml ONCE ONE Administration Tenecteplase 17 mg 11/12/23 01:23 11/12/23 01:34 Tenecteplase 50 Mg/10 Ml Kit IVPUSH 11/12/23 01:24 17 mg ONCE ONE Administration Medical Decision Making Medical Decision Making [facility] Narrative: Patient with history of CVA comes here with acute onset of worsening of the weakness on the right side LKW was [address] scan of the head is negative for acute showed old infarct started on TNK neurologist paged awaiting for the call back at this time we do not have any ICU bed will wait for the CTA if negative for LVO patient will stay here until get the bed in the a.m. case discussed Dr. [place] neurologist agreed with the plan Patient's CTA negative for LVO status post TNK no ICU bed till 07:00 will keep patient in ER 7 Differential Diagnosis Differential Diagnoses: The differential diagnosis associated with the presentation includes CVA/TIA Admission/Observation Consideration of admission/observation: Escalation of care including admission/observation considered Lab Data MDM Lab Attestation statement: I reviewed the patient's lab results. 11/12/23 00:17 11/12/23 00:17 Labs: Lab Results 11/12/23 11/12/23 Range/Units 00:17 01:13 WBC 11.5 H (4.8-10.8) X10*3/uL RBC 4.97 (4.20-5.50) X10*6/uL Hgb 15.5 (12.0-16.0) g/dl Hct 45.4 (37.0-47.0) % MCV 91.3 (80.0-98.0) fL MCH 31.2 (27.0-33.0) pg MCHC 34.1 (31.0-35.0) g/dl RDW 13.3 (11.0-16.0) % Plt Count 218 (160-400) X10*3/uL MPV 10.7 (9.4-12.3) fL Immature Gran % (Auto) 0.2 (0.0-0.4) % Neut % (Auto) 61.1 (45-73) % Lymph % (Auto) 30.4 (20-40) % [place] % (Auto) 6.3 (2-11) % Eos % (Auto) 1.6 (0-4) % Baso % (Auto) 0.4 (0-2) % Lymph # (Auto) 3.5 (1.2-4.9) X10*3/uL [place] # (Auto) 0.7 (0.1-1.2) X10*3/uL Eos # (Auto) 0.2 (0.0-0.4) X10*3/uL Baso # (Auto) 0.1 (0.0-0.2) X10*3/uL Abs Immat Gran (auto) 0.02 (0.00-0.03) X10*3/uL Absolute Neuts (auto) 7.0 (2.0-8.3) x10*3/uL Absolute Nucleated RBC 0.000 (0.0-0.012) X10*3/uL Nucleated RBC % (auto) 0.0 (0.0-0.2) /100WBC Hold Purple Top SEE NOTE PT 10.2 L (10.9-12.4) SEC Whole Blood PT 11.4 (11.1-13.5) sec INR 0.9 (0.9-1.1) Whole Blood INR 1.0 (0.9-1.1) APTT 31.5 (26.0-36.8) SEC Sodium 143 (135-145) mmol/L Potassium 3.6 (3.3-5.1) mmol/L Chloride 105 (96-108) mmol/L Carbon Dioxide 29 (22-29) mmol/L Anion Gap 13 (12-20) BUN 7 L (9-16) mg/dL Creatinine 0.79 (0.5-1.4) mg/dL Estim Creat Clear Calc 69.2 Estimated GFR > 60 Random Glucose 167 H (60-115) mg/dL Calcium 11.0 H D (8.4-10.2) mg/dL Troponin I High Sens < 2.7 (<3.5-17.0) ng/L Triglycerides 214 H (<150) mg/dL Cholesterol 176 (<200) mg/dL LDL Cholesterol, Calc 91 (<100) mg/dL HDL Cholesterol 43 (>40) mg/dL Independent Interpretation I performed an independent interpretation of an: EKG Interpretation: Normal sinus rhythm heart rate 88 beats per minute normal intervals normal axis no acute ST-T no acute ischemia NIH Stroke Scale Internal: Initial- Upon Arrival Level of Consciousness: Alert Level of Consciousness Questions: Answers both questions correctly Level of Consciousness Commands: Performs both tasks correctly Best Gaze: Normal Visual: No visual loss Facial Palsy: Normal Motor Arm (Right): Drift Motor Arm (Left): No drift Motor Leg (Right): Drift Motor Leg (Left): No drift Limb Ataxia: Absent Sensory: Normal Best Language: No aphasia Dysarthia: Normal Extinction and Inattention: No abnormality Score: 2 Discharge Plan Discharge Clinical Impression: CVA (cerebral vascular accident) Patient Disposition: Admitted As Inpatient Print Language: Icelandic
--- NOTE | 2023-11-12 01:07 | ECG_ITS ---
Test Reason : stroke Blood Pressure : / mmHG Vent. Rate : 088 BPM Atrial Rate : 088 BPM P-R Int : 178 ms QRS Dur : 090 ms QT Int : 362 ms P-R-T Axes : 071 016 061 degrees QTc Int : 438 ms Normal sinus rhythm Cannot rule out Anterior infarct , age undetermined Abnormal ECG When compared with ECG of 29-SEP-2021 09:27, No significant change was found Referred By: Jeb See Electronically Signed By:DERRICK BOYD
[2023-11-12 01:18] LABS: Prothrombin Time Whole Bld POC 11.4 sec (11.1-13.5)
[2023-11-12 01:23] LABS: MANUAL DIFF FLAG NO
[2023-11-12] MEDS: iohexoL 350 MG/ML 100 ML INFUS..BTL 70 ML IV (01:24)
[2023-11-12 01:26] LABS: Basophils Absolute Auto 0.1 X10*3/uL (0.0-0.2); Basophils Percent Auto 0.4 % (0-2); Eosinophils Absolute Auto 0.2 X10*3/uL (0.0-0.4); Eosinophils Percent Auto 1.6 % (0-4); Hematocrit 45.4 % (37.0-47.0); Hemoglobin 15.5 g/dl (12.0-16.0); Imm Gran Abs Auto 0.02 X10*3/uL (0.00-0.03); Imm Gran Pct Auto 0.2 % (0.0-0.4); Lymphocytes Absolute Auto 3.5 X10*3/uL (1.2-4.9); Lymphocytes Percent Auto 30.4 % (20-40); Mean Corpuscular HGB Conc 34.1 g/dl (31.0-35.0); Mean Corpuscular Hemoglobin 31.2 pg (27.0-33.0); Mean Corpuscular Volume 91.3 fL (80.0-98.0); Mean Platelet Volume 10.7 fL (9.4-12.3); Monocytes Absolute Auto 0.7 X10*3/uL (0.1-1.2); Monocytes Percent Auto 6.3 % (2-11); Neutrophils Percent Auto 61.1 % (45-73); Platelet Count 218 X10*3/uL (160-400); Red Blood Count 4.97 X10*6/uL (4.20-5.50); Red Cell Distribution Width 13.3 % (11.0-16.0); White Blood Count 11.5 X10*3/uL (4.8-10.8)
[2023-11-12] MEDS: Tenecteplase 50 MG/10 ML KIT 17 MG IVPUSH (01:34)
[2023-11-12 01:35] LABS: INTERNATIONAL NORM RATIO 0.9 (0.9-1.1); Prothrombin Time 10.2 SEC (10.9-12.4)
[2023-11-12 01:37] LABS: Partial Thromboplastin Time 31.5 SEC (26.0-36.8)
[2023-11-12 01:38] LABS: Stroke Lab Use COMPLETE
[2023-11-12 01:46] LABS: Anion Gap 13 (12-20); Blood Urea Nitrogen 7 mg/dL (9-16); Carbon Dioxide 29 mmol/L (22-29); Chloride 105 mmol/L (96-108); Cholesterol 176 mg/dL (<200); Creatinine Clr Calc Pharmacy 69.2; Estimated Glomerular Filt Rate > 60; Glucose Random 167 mg/dL (60-115); HDL Cholesterol 43 mg/dL (>40); LDL Cholesterol Calculated 91 mg/dL (<100); Potassium 3.6 mmol/L (3.3-5.1); Sodium 143 mmol/L (135-145); Triglycerides 214 mg/dL (<150)
[2023-11-12 01:50] LABS: Troponin-I High Sensitivity < 2.7 ng/L (<3.5-17.0)
--- NOTE | 2023-11-12 02:00 | PC.NURSE ---
pt arrived to ED via reporting right arm tingling that started around 2330 and then spread to right leg. pt has previous stroke in 2021 with some right sided weakness at baseline. however pt reported this right arm & leg tingling/numbness is new and is not her baseline. pt ambulated into , ambulated into room 12 with triage nurse and stroke alert was called by MD harris, per MD he noticed increased weakness/heaviness to right side that patient stated was a little worse than her baseline, along with the tingling and numbness. iv line placed and labs sent immediately, pt brought to CT scan for stroke CT, TNK administered per apr at 01:34 and dose verified with second RN Janet. Ekg done, pt placed onto paper stacker. at this time pt reports a relief of numbness/tingling/heaviness to right side. speech clear, answering questions appropriately, no facial droop or asymmetrical smile noted. pt denies headaches. MD harris reaching out to field merchandiser for icu admission. at bedside, call sandoval within reach, plan of care ongoing .
--- NOTE | 2023-11-12 06:13 | PC.NURSE ---
pt is A&Ox4, awake, oriented, answering questions appropriately. denies headaches, blurred vision, dizziness/lightheadedness, etc. neuros intact. vital signs stable. pt offers no current complaints
--- NOTE | 2023-11-12 08:30 | P.CNNE_ITS ---
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 At that time she could not be treated with acute medicines because of time delay and no vascular lesion was noted. She has been taking lisinopril and aspirin for blood pressure management and to prevent stroke. This time she was here after she noted similar symptoms with right arm and leg numbness and tingling. She said that she initially noted in right shoulder area and her hand and then sometime later she would also noted similar feeling in her right leg. There was no associated headache and she denied having any history of headaches. She came to emergency room right away and after evaluation was treated with TNK. She said that after that treatment she fell better and now symptoms were completely resolved without any complications. Review of Systems 2 Review of Systems: No headache or cold or flu-like illness or trauma. [facility] Past Medical History Medical History CVA (cerebral vascular accident) Heavy tobacco smoker >10 cigarettes per day Hypertension Complicated UTI (urinary tract infection) Recurrent UTI (urinary tract infection) Frequency of micturition Dysuria Family History Family History Father Stomach cancer Mother Sarcoidosis Surgical History Surgical History Hx of local excision of skin lesion (04/14/22) Social History Social History Household Members: Spouse Housing: House Do you presently have visiting nurse or other home services: No Patient Tobacco Use Status: Current everyday Tobacco user Tobacco use type: Cigarette Smoked in Last 30 Days: Yes e-Cigarette/Vaping Use: Never Used Second Hand Smoke Exposure: No Use of substances other than those prescribed or required for medical reasons: No Advance Directives: No Advance Directives Information Provided: Yes Patient : No service: No Current occupational status: employed Cognitive needs: No Hearing needs: No Vision needs: Yes Meds Allergies Allergy/AdvReac Type Severity Reaction Status Date / Time No Known Allergies Allergy Verified 11/12/23 01:04 Home Medications ?Medication ?Instructions ?Recorded ?Confirmed ?Last Taken ?Type acetaminophen 500 mg tablet 1,000 mg PO Q6H PRN Pain 09/29/21 08/31/23 09/28/21 History ibuprofen 200 mg tablet 400 mg PO Q8H PRN Pain 09/29/21 08/31/23 Unknown History atorvastatin 80 mg tablet 80 mg PO DAILY 11/12/23 Unknown History Physical Exam 2 Vital Signs: Vital Signs: Last Vital Signs Temp 98.1 F 11/12/23 07:52 Pulse 98 11/12/23 07:52 Resp 20 11/12/23 07:52 BP 120/74 11/12/23 07:52 Pulse Ox 96 11/12/23 07:52 O2 Del Method Room Air 11/12/23 07:52 BMI result Body Mass Index 28.1 Neuro: Other: She is alert and awake with normal spontaneity of speech fluency comprehension and affect. Face is symmetrical. Visual lr are full. There is minimal right pronator drift. Right plantar is extensor in left is flexor. Deep tendon reflexes are trace to 1+. There is no special or visual extinction. Speech is normal. Results Labs 11/12/23 00:17 11/12/23 00:17 Labs: Short CBC 11/12/23 Range/Units 00:17 WBC 11.5 H (4.8-10.8) X10*3/uL Hgb 15.5 (12.0-16.0) g/dl Hct 45.4 (37.0-47.0) % Plt Count 218 (160-400) X10*3/uL BMP 11/12/23 00:17 Sodium 143 Potassium 3.6 Chloride 105 Carbon Dioxide 29 BUN 7 L Creatinine 0.79 Calcium 11.0 [address] Non[address] head CT revealed small left subcortical hypodensity in the area where she had previous stroke. Otherwise no obvious abnormality was noted. CTA of brain and neck did not reveal any significant stenosis though atherosclerotic disease was noted in intracranial and extracranial vasculature. Assessment and Plan (1) Cerebral infarction: Qualifiers: Cerebral infarction mechanism: thrombosis Precerebral and cerebral artery: unspecified cerebral artery Qualified Code(s): I63.30 - Cerebral infarction due to thrombosis of unspecified cerebral artery Status: Acute 58 years old woman with underlying hypertension and a left subcortical ischemic infarct in 2021 with mild chronic microvascular ischemic changes noted on MRI at that time, came to hospital with new onset of right-sided numbness and tingling and weakness and was treated with TNK for suspected another ischemic infarct. At this time, her symptoms were completely resolved without any complications. My recommendation is to obtain a noncontrast MRI of brain to see if any new lesion is noted. Otherwise mainstay of management is control of vascular risk factors and in that category I would start her on clopidogrel 75 mg daily with aspirin 81 mg daily after 24 hours of TNK, will continue statin and blood pressure management. At this time, she did not need ICU admission and can be admitted in intermediate unit. Procedures Date of Service Date of Service: 11/12/23
--- NOTE | 2023-11-12 09:29 | PC.NURSE ---
mri form completed, patient to MRI
--- NOTE | 2023-11-12 09:33 | PHA.MEDREC ---
Pharmacy Consult ? Medication Reconciliation Pharmacy has completed the medication reconciliation. Spoke with patient who states that she takes only Aspirin 325 mg and lisinopril 5 mg daily @1999. Last doses was 11/10 @1999 before presenting to this facility. She states that she used to take atorvastatin but stopped several months ago. She was prescribed 80 mg but had reduced to 40 mg daily at the time of discontinuation.
--- NOTE | 2023-11-12 10:00 | PC.NURSE ---
patient back from MRI
--- NOTE | 2023-11-12 14:40 | MHC.STROKE ---
Pt is awake, alert and oriented x 3. Pt is sitting up, watching TV. Reports that she is very hungry. I'm starting to get hangry . No neuro deficits noted at this time. Pt has no complaints. Reports that she had numbness and tingling prior to arrival but that has now resolved. Pt has a hx of a stroke in 2021. She reports that she takes a blood pressure medication for hx of HTN. Patient states that she cannot take a statin due to the side effects. I will not take that medication again We discussed risk factors like her hypertension and also her smoking. I offered to ask the provider to order a nicotene patch. Pt declined at this time. Plan of care discussed with patient. Pt states that she understands that she needs to stay for monitoring. All questions answered. Awaiting admission. Will continue to assist as needed.
--- NOTE | 2023-11-12 14:46 | P.HPHOSP_ITS ---
History of Present Illness Date of Service: 11/12/23 Attending physician on admission: Rodo Pierce Chief Complaint: RUE weakness/numbness 58 year old female with history of cva in 09/26 with sequela of R sided hemiparesis and htn presented to the ED early this morning for evaluation of RUE weakness/paresthesias that started around 1130 pm last night. She is right hand dominant. No facial droop, slurred speech, confusion, gait instability, headache, or vision changes. She was noted to be limping on the right side on arrival to the ED. on arrival, was mildly hypertensive to 164/77, vitals have been otherwise within normal limits overall. She has a mild leukocytosis of 11.5, hematology studies otherwise unremarkable. Renal function and electrolyte levels within normal limits. Troponin undetectable. Total cholesterol 176, LDL 91. PT 10.2, INR 0.9. Head CT negative for acute intracranial abnormality. CTA of the head/neck negative for large vessel occlusion or hemodynamically significant stenosis for does show nonocclusive eccentric known ulcerative calcific atherosclerosis of the left and right carotid bulbs. Given severity of symptoms, patient was administered TNK while in the ED and observed for 12 hours with full resolution of symptoms. She was hemodynamically stable. She was evaluated by Neurology and intensivisty who evaluated chart who felt admission to med/[facility] was appropriate after 12 hours of observation and repeat head CT was negative for bleed. She continues smoking cigarettes (about 4 daily) but denies any illicit drug use or regular alcohol use. Review of Systems 2 Review of Systems: Yes all other systems are reviewed and are negative [facility] Medical History CVA (cerebral vascular accident) Heavy tobacco smoker >10 cigarettes per day Hypertension Complicated UTI (urinary tract infection) Recurrent UTI (urinary tract infection) Frequency of micturition Dysuria Family History Father Stomach cancer Mother Sarcoidosis Surgical History Hx of local excision of skin lesion (04/14/22) Social History Household Members: Spouse Housing: House Do you presently have visiting nurse or other home services: No Patient Tobacco Use Status: Current everyday Tobacco user Tobacco use type: Cigarette Smoked in Last 30 Days: Yes e-Cigarette/Vaping Use: Never Used Second Hand Smoke Exposure: No Use of substances other than those prescribed or required for medical reasons: No Advance Directives: No Advance Directives Information Provided: Yes Patient : No service: No Current occupational status: employed Cognitive needs: No Hearing needs: No Vision needs: Yes Meds Allergies Allergy/AdvReac Type Severity Reaction Status Date / Time No Known Allergies Allergy Verified 11/12/23 01:04 Home Medications ?Medication ?Instructions ?Recorded ?Confirmed ?Last Taken ?Type aspirin 325 mg tablet 325 mg PO DAILY@199911/12/23 11/12/23 11/11/23 History lisinopril 5 mg tablet 5 mg PO DAILY@199911/12/23 11/12/23 11/11/23 History Physical Exam 2 Vital Signs and Narrative: Vital Signs: Last Vital Signs Temp 97.8 F 11/12/23 14:07 Pulse 103 H 11/12/23 14:07 Resp 16 11/12/23 14:07 BP 110/75 11/12/23 14:07 Pulse Ox 94 11/12/23 14:07 O2 Del Method Room Air 11/12/23 14:07 BMI result Body Mass Index 28.1 Constitutional - Awake and Alert, No apparent distress Eyes - PERRLA, EOMI Cardiovascular - S1S2, RRR, No edema Respiratory - Normal lung expansion, Normal respiratory effort, No respiratory distress, CTA bilaterally Gastrointestinal - NT / ND; +BS; No rebound or guarding - No CVA tenderness Extremities - no calf tenderness bilaterally, no swelling Musculoskeletal - Normal inspection, normal ROM Skin - Warm/Dry Neurological - Alert & oriented x3, CN II-XII in tact, 5/5 strength BUE and BLE Psychological - Appropriate affect Results Labs 11/12/23 15:22 11/12/23 15:22 Labs: Laboratory Results - last 24 hr 11/12/23 11/12/23 00:17 01:13 MCV 91.3 MCH 31.2 MCHC 34.1 RDW 13.3 Plt Count 218 MPV 10.7 Immature Gran % (Auto) 0.2 Neut % (Auto) 61.1 Lymph % (Auto) 30.4 [place] % (Auto) 6.3 Eos % (Auto) 1.6 Baso % (Auto) 0.4 Lymph # (Auto) 3.5 [place] # (Auto) 0.7 Eos # (Auto) 0.2 Baso # (Auto) 0.1 Abs Immat Gran (auto) 0.02 Absolute Neuts (auto) 7.0 Absolute Nucleated RBC 0.000 Nucleated RBC % (auto) 0.0 Hold Purple Top SEE NOTE PT 10.2 L Whole Blood PT 11.4 INR 0.9 Whole Blood INR 1.0 APTT 31.5 Anion Gap 13 Estim Creat Clear Calc 69.2 Estimated GFR > 60 Random Glucose 167 H Calcium 11.0 H D Troponin I High Sens < 2.7 Triglycerides 214 H Cholesterol 176 LDL Cholesterol, Calc 91 HDL Cholesterol 43 Imaging Radiologist's Impressions: Impressions Head CT 11/12/23 01:10 IMPRESSION: *No acute intracranial abnormalities identified. *Chronic focal infarct within the left starr radiata corresponding to the prior acute infarct present on the comparison MRI of the brain 09/29/2021. This critical result was discussed with Jeb See MD MD by telephone at 11/12/2023 1:30 AM EDT and it was ascertained that the content and urgency of the report was understood at the time of direct communication. Electronically signed by: Jonas Durham MD 11/12/2023 01:32 AM EDT Head/Neck CTA 11/12/23 01:14 IMPRESSION: IV contrast enhanced CT the head: *No acute intracranial abnormalities. *Chronic focal infarct within the left starr radiata. CT angiography head: *No intracranial large vessel occlusions. *Nonocclusive segmental calcific atherosclerosis of the cavernous portions of the left and right internal carotid arteries. CT angiography neck: *Mild nonocclusive eccentric nonulcerative calcific atherosclerosis of the left and right carotid bulbs. Electronically signed by: Jonas Durham MD 11/12/2023 01:58 AM EDT Brain MRI 11/12/23 09:39 IMPRESSION: There is a chronic lacunar infarct within the left centrum semiovale along the expected course of the left corticospinal tract. Scattered chronic small vessel ischemic changes are also visualized within the periventricular white matter. No evidence of acute territorial infarct or hemorrhage. Electronically signed by: Jagjit Gore MD 11/12/2023 10:24 AM EDT RP Assessment and Plan (1) CVA (cerebral vascular accident): Status: Acute Plan 58 year old female with history of cva in 09/26 w/ right sided hemiparesis and htn admitted for acute CVA s/p TNK administration #Acute CVA -presenting symptoms right upper and lower extremity weakness and paresthesias, last known well time 23:30 last night -TNK administered 0134. Observed for 12 hours with full resolution of symptoms and patient noted to be hemodynamically stable with repeat head ct negative for acute intracranial abnormality including bleed. 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 Admit to med/tele -neuro checks [id number], then q4h -MRI brain shows chronic lacunar infarct within the left centrum semiovale along the expected course of the left corticospinal tract and scattered chronic small- vessel changes but no evidence of acute territorial infarct or hemorrhage -passed bedside swallow evaluation. Stroke education -check echo -neurology input appreciated -initiate ASA/Plavix 24 hours post TNK (not yet ordered) -LDL 91, reports adverse reaction to atorvastatin, consider crestor on discharge (not on formulary- pravastatin to be given while admitted) -monitor on tele -pt/ot #HTN -hold lisinopril to allow for permissive hypertension #Cigarette smoker -cessation strongly advised dvt prophylaxis- SCPs s/p TNK full code pt requires inpt stay at least 2 midnights due to acute cva requiring TNK Quality Stroke Does the patient have a stroke diagnosis?: Yes Reason for No Anti-thrombotic by Day Two: N/A - Med Ordered VTE Prior VTE?: No VTE Risk Level:: Medical - moderate - high VTE Device Contraindication: N/A - Device Ordered VTE Drug Contraindication: Treatment Not Indicated
[2023-11-12 15:26] LABS: MANUAL DIFF FLAG NO
[2023-11-12 15:32] LABS: Basophils Absolute Auto 0.1 X10*3/uL (0.0-0.2); Basophils Percent Auto 0.5 % (0-2); Eosinophils Absolute Auto 0.1 X10*3/uL (0.0-0.4); Eosinophils Percent Auto 1.2 % (0-4); Hematocrit 42.7 % (37.0-47.0); Hemoglobin 14.4 g/dl (12.0-16.0); Imm Gran Abs Auto 0.03 X10*3/uL (0.00-0.03); Imm Gran Pct Auto 0.3 % (0.0-0.4); Lymphocytes Absolute Auto 3.1 X10*3/uL (1.2-4.9); Lymphocytes Percent Auto 26.8 % (20-40); Mean Corpuscular HGB Conc 33.7 g/dl (31.0-35.0); Mean Corpuscular Hemoglobin 30.8 pg (27.0-33.0); Mean Corpuscular Volume 91.4 fL (80.0-98.0); Monocytes Absolute Auto 0.5 X10*3/uL (0.1-1.2); Neutrophils Absolute Auto 7.7 x10*3/uL (2.0-8.3); Neutrophils Percent Auto 67.2 % (45-73); Platelet Count 210 X10*3/uL (160-400); Red Blood Count 4.67 X10*6/uL (4.20-5.50); Red Cell Distribution Width 13.6 % (11.0-16.0); White Blood Count 11.4 X10*3/uL (4.8-10.8)
[2023-11-12 15:41] LABS: Anion Gap 11 (12-20); Blood Urea Nitrogen 7 mg/dL (9-16); Calcium 9.7 mg/dL (8.4-10.2); Carbon Dioxide 29 mmol/L (22-29); Chloride 104 mmol/L (96-108); Creatinine Clr Calc Pharmacy 64.3; Estimated Glomerular Filt Rate > 60; Glucose Random 171 mg/dL (60-115); Potassium 3.9 mmol/L (3.3-5.1); Sodium 140 mmol/L (135-145)
[2023-11-12] MEDS: Aspirin 325 MG TABLET PO (21:15)
[2023-11-12] MEDS: lisinopriL 5 MG TABLET PO (21:16)
[2023-11-12] MEDS: 0.9 % Sodium Chloride Flush 3 ML SYRINGE IVFLUSH (22:08)
[2023-11-13] VITALS: BP 108/66; PULSE 89; RESP 18; TEMP 36.3; O2SAT 96
[2023-11-13 04:00] VITALS: BP 114/62; PULSE 86; RESP 18; TEMP 36.7; O2SAT 96
[2023-11-13 06:32] LABS: MANUAL DIFF FLAG NO
[2023-11-13 06:34] LABS: Basophils Absolute Auto 0.1 X10*3/uL (0.0-0.2); Basophils Percent Auto 0.5 % (0-2); Eosinophils Absolute Auto 0.1 X10*3/uL (0.0-0.4); Eosinophils Percent Auto 1.3 % (0-4); Hematocrit 41.9 % (37.0-47.0); Hemoglobin 14.2 g/dl (12.0-16.0); Imm Gran Abs Auto 0.05 X10*3/uL (0.00-0.03); Imm Gran Pct Auto 0.5 % (0.0-0.4); Lymphocytes Absolute Auto 3.2 X10*3/uL (1.2-4.9); Lymphocytes Percent Auto 30.6 % (20-40); Mean Corpuscular HGB Conc 33.9 g/dl (31.0-35.0); Mean Corpuscular Hemoglobin 31.1 pg (27.0-33.0); Mean Corpuscular Volume 91.7 fL (80.0-98.0); Mean Platelet Volume 10.9 fL (9.4-12.3); Monocytes Absolute Auto 0.7 X10*3/uL (0.1-1.2); Monocytes Percent Auto 6.7 % (2-11); Neutrophils Absolute Auto 6.3 x10*3/uL (2.0-8.3); Neutrophils Percent Auto 60.4 % (45-73); Platelet Count 195 X10*3/uL (160-400); Red Blood Count 4.57 X10*6/uL (4.20-5.50); Red Cell Distribution Width 13.5 % (11.0-16.0); White Blood Count 10.5 X10*3/uL (4.8-10.8)
[2023-11-13 06:53] LABS: Anion Gap 10 (12-20); Blood Urea Nitrogen 10 mg/dL (9-16); Calcium 9.3 mg/dL (8.4-10.2); Carbon Dioxide 27 mmol/L (22-29); Chloride 108 mmol/L (96-108); Creatinine Clr Calc Pharmacy 83.6; Estimated Glomerular Filt Rate > 60; Glucose Random 104 mg/dL (60-115); Sodium 141 mmol/L (135-145)
[2023-11-13 08:00] VITALS: BP 120/66; PULSE 90; RESP 20; TEMP 36.4; O2SAT 96
--- NOTE | 2023-11-13 08:26 | MHC.CM.PN ---
Pt lives with her , she is independent, no home health services, no DME. HCP is on file and confirmed: Javed, her . PCP confirmed: Dr. Gill. Transportation at [place] will be pt.'s . DCP: home, self care. CM to follow for DC needs.
[2023-11-13] MEDS: 0.9 % Sodium Chloride Flush 3 ML SYRINGE IVFLUSH (09:52)
[2023-11-13] MEDS: Pravastatin Sodium 40 MG TABLET PO (09:52)
[2023-11-13] MEDS: Clopidogrel Bisulfate 75 MG TABLET PO (09:52)
[2023-11-13 11:57] VITALS: BP 113/67; PULSE 88; RESP 19; TEMP 36.8; O2SAT 97
--- NOTE | 2023-11-13 12:03 | P.DS_ITS ---
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 She is right hand dominant. No facial droop, slurred speech, confusion, gait instability, headache, or vision changes. She was noted to be limping on the right side on arrival to the ED. on arrival, was mildly hypertensive to 164/77, vitals have been otherwise within normal limits overall. She has a mild leukocytosis of 11.5, hematology studies otherwise unremarkable. Renal function and electrolyte levels within normal limits. Troponin undetectable. Total cholesterol 176, LDL 91. PT 10.2, INR 0.9. Head CT negative for acute intracranial abnormality. CTA of the head/neck negative for large vessel occlusion or hemodynamically significant stenosis for does show nonocclusive eccentric known ulcerative calcific atherosclerosis of the left and right carotid bulbs. Given severity of symptoms, patient was administered TNK while in the ED and observed for 12 hours with full resolution of symptoms. She was hemodynamically stable. She was evaluated by Neurology and intensivisty who evaluated chart who felt admission to med/tele was appropriate after 12 hours of observation and repeat head CT was negative for bleed. She continues smoking cigarettes (about 4 daily) but denies any illicit drug use or regular alcohol use. Hospital course: Hospital course uneventful. Pt admitted to med/tele after 14 hour observation in ED following TNK administration due to acute CVA resulting in worsening right sided weakness and paresthesias. Deficits returned to baseline and patient remained hemodynamically stable. MRI negative for acute intracranial abnormality. Seen by neurology recommending asa be reduced to 81mg and add plavix 75mg daily which was admninistered 24 hours after TNK administration. Monitored on telemetry without any arrhythmia noted. LDL elevated at 91 with goal of <70. Has history of adverse reaction to atorvastatin. Given pravastatin 40 mg while admitted. Will discharge on Crestor 20 mg daily. She should continue aspirin 81 mg and Plavix 75 mg which she chooses to take nightly. Resume lisinopril 5 mg nightly on discharge. Strongly advised smoking cessation. Declines replacement therapy as she states she has patches and Nicorette at home. She should follow-up with PCP and can have echocardiogram performed outpatient. Evaluted by PT/OT and does not need home services. Time spent discussing smoking cessation with patient: 3 to 10 minutes Status at Discharge Functional status at discharge: independent ambulation Overall status at discharge: patient is back to baseline Time Attestation Discharge Coordination Time (in mins): 40 Quality: Safe Use of Opioids Does Pt have an Active Cancer Diagnosis on the Problem List?: No Quality: Stroke Does the patient have a stroke diagnosis?: No Physical Exam Vital Signs: Vital Signs: Last Vital Signs Temp 98.3 F 11/13/23 11:57 Pulse 88 11/13/23 11:57 Resp 19 11/13/23 11:57 BP 113/67 11/13/23 11:57 Pulse Ox 97 11/13/23 11:57 O2 Del Method Room Air 11/13/23 11:57 BMI result Body Mass Index 28.6 Constitutional - Awake and Alert, No apparent distress Eyes - PERRLA, EOMI Cardiovascular - S1S2, RRR, No edema Respiratory - Normal lung expansion, Normal respiratory effort, No respiratory distress, CTA bilaterally Extremities - no calf tenderness bilaterally, no swelling Skin - Warm/Dry Neurological - Alert & oriented x3, CN II-XII in tact, 5/5 strength BUE and BLE Psychological - Appropriate affect DS: Data Data Completed and Pending Labs on day of discharge: Laboratory Results - last 24 hr 11/12/23 11/13/23 15:22 06:07 WBC 11.4 H 10.5 RBC 4.67 4.57 Hgb 14.4 14.2 Hct 42.7 41.9 MCV 91.4 91.7 MCH 30.8 31.1 MCHC 33.7 33.9 RDW 13.6 13.5 Plt Count 210 195 MPV 11.0 10.9 Immature Gran % (Auto) 0.3 0.5 H Neut % (Auto) 67.2 60.4 Lymph % (Auto) 26.8 30.6 [place] % (Auto) 4.0 6.7 Eos % (Auto) 1.2 1.3 Baso % (Auto) 0.5 0.5 Lymph # (Auto) 3.1 3.2 [place] # (Auto) 0.5 0.7 Eos # (Auto) 0.1 0.1 Baso # (Auto) 0.1 0.1 Abs Immat Gran (auto) 0.03 0.05 H Absolute Neuts (auto) 7.7 6.3 Absolute Nucleated RBC 0.000 0.000 Nucleated RBC % (auto) 0.0 0.0 Sodium 140 141 Potassium 3.9 4.0 Chloride 104 108 Carbon Dioxide 29 27 Anion Gap 11 L 10 L BUN 7 L 10 Creatinine 0.85 0.66 Estim Creat Clear Calc 64.3 83.6 Estimated GFR > 60 > 60 Random Glucose 171 H 104 Calcium 9.7 D 9.3 Discharge Plan Discharge Anticipated Discharge Date/Time: 11/13/23 12:03 Patient Disposition: Home, Self-Care Discharge Diagnosis: CVA Referrals: Caleb Gill MD [Primary Care Provider] - 1 Week Discharge Medications: New clopidogrel 75 mg Tablet 75 mg PO DAILY@1999 Qty: 90 0RF rosuvastatin 20 mg tablet 20 mg PO DAILY Qty: 90 0RF aspirin 81 mg tablet,delayed release (DR/EC) 81 mg PO DAILY@1999 Qty: 90 0RF Continued lisinopril 5 mg tablet 5 mg PO DAILY@1999 Discontinued aspirin 325 mg tablet 325 mg PO DAILY@1999 Discharge Orders: Discharge Order (Routine); Ordered 11/13/23 Ordered By: Alissa Snyder Diet: Advance to usual diet Activity on Discharge: As tolerated Stand Alone Forms: Patient Portal Discharge page Print Language: [place] Care Plan Goals: Prevent recurrent stroke Stop smoking Health Concerns: Acute CVA Nicotine dependence Plan of Treatment: Acute CVA -given severity of symptoms involving dominant extremity, you were given a medication class called TNK to break up any clot causing ischemic stroke. MRI brain ultimately negative and symptoms resolved to baseline which includes right sided weakness/tingling residual from prior stroke -Seen by neurology: DECREASE aspirin to 81mg daily and continue at 8pm. ADD plavix 75mg daily. Can take next dose at 8pm -Initiate crestor (rosuvastatin) 20mg daily for cholesterol management. -STOP smoking/vaping. You reported you have patches/gum at home -Continue lisinopril 5mg starting this evening Follow up with pcp Assessment: See above. See discharge summary
== END 2023-11-13 14:45 | disposition home or self-care (01) | DRG 45 ==
LOC: HO.ED 09:30 → HO.EDOVER 15:56 → HO.IMC 19:41
PROVIDERS: Internal Medicine; Admitting Provider Physician Assistant; Emergency Provider Emergency Medicine; PCP Internal Medicine; Visit Provider Physician Assistant
DX: I63.9 Cerebral infarction, unspecified (principal); G81.91 Hemiplegia, unspecified affecting right dominant side; F17.210 Nicotine dependence, cigarettes, uncomplicated; I10 Essential (primary) hypertension; Z71.6 Tobacco abuse counseling; R20.2 Paresthesia of skin; R29.702 NIHSS score 2; Z79.899 Other long term (current) drug therapy
CPT/HCPCS: 36415; 70450; 70496; 70498; 70551; 80048; 80061; 84484; 85025; 85610; 85730; 93005; 97161; 97165; 99285; J3101; Q9967

== ENCOUNTER → 2023-11-12 01:32 | Outpatient (BNV) | payer BC, SELFPAY | PROVIDERS: Emergency Provider Emergency Medicine Emergency Medical Services; PCP Internal Medicine; Visit Provider Psychiatry & Neurology Neurology | DX: I63.30 Cerebral infarction due to thrombosis of unspecified cerebral artery (principal) | CPT/HCPCS: 99233 ==

== ENCOUNTER → 2023-11-12 15:47 | Outpatient (BNV) | payer BC, SELFPAY | PROVIDERS: Admitting Provider Physician Assistant; Emergency Provider Emergency Medicine; PCP Internal Medicine; Visit Provider Physician Assistant | DX: I63.9 Cerebral infarction, unspecified (principal) | CPT/HCPCS: 99223; 99239 ==

== ENCOUNTER 2023-11-22 16:00 | Outpatient (AMB) | payer BC, SELFPAY ==
[2023-11-22 16:01] VITALS: BP 134/68; PULSE 105; O2SAT 98; BMI 28.0
--- NOTE | 2023-11-22 16:01 | A.OFFPC_ITS ---
Vital Signs 11/22/23 16:01 Height 5 ft 2 in Weight 153 lb BMI 28.0 BP 134/68 Blood Pressure Location Lt brachial Position Sitting Pulse 105 H Pulse Source Pulse Oximeter Pulse Oximetry (%) 98 Oxygen Delivery Method Room Air Intake Visit Reasons: TCM CVA 11/12 Intake Note: Patient is here for hospital discharge follow up. Patient was [place] from [facility] [place]/13/23 [place] Firer Required: No Allergies No Known Allergies Allergy (Verified 11/22/23 16:01) Medication List - Last Reconciled 11/22/23 by Arleth Fritz PA-C aspirin 81 mg PO DAILY@1999 clopidogrel 75 mg PO DAILY@1999 lisinopril 5 mg PO DAILY@1999 rosuvastatin 20 mg PO DAILY Tobacco use date assessed: 02/23/23 Dental Screening Dental Screen Date: 02/23/23 HPI TCM CVA 11/12 HPI Details 58-year-old female with past medical his tory of tobacco abuse, cerebral infarction 09/26, hyperlipidemia, hypertension last seen by Dr. Gill August 2023 coming in for hospital discharge follow up. In review of the notes, patient presents to [facility] ED 11/12/2023 for right upper extremity weakness head CT negative for acute intracranial abnormality and CTA of the head/neck negative for large vessel occlusion. Patient was administered TNK while in the ED and observe for 12 hours with follow up resolution of symptoms and admitted for further observation. Repeat head CT was negative for bleed and hospital course was uneventful. Patient was discharged on Crestor 20 mg, clopidogrel and recommended outpatient echocardiogram and discharged home 11/13/2023. Patient states she feels well and has no acute concerns today. She has been working on smoking cessation has not had a cigarette since Sunday however she does continue to vape nicotine. [facility] Information Date of Discharge 11/13/23 Discharged From [facility] Medical History Heavy tobacco smoker >10 cigarettes per day Hypertension Complicated UTI (urinary tract infection) Recurrent UTI (urinary tract infection) Frequency of micturition Dysuria Surgical History Hx of local excision of skin lesion (04/14/22) Family History Father Stomach cancer Mother Sarcoidosis Social History Household Members: Spouse Housing: House Do you presently have visiting nurse or other home services: No Patient Tobacco Use Status: Current everyday Tobacco user Tobacco use type: Cigarette Cigarettes Per Day: 4 Years Smoked: 30 e-Cigarette/Vaping Use: Never Used Second Hand Smoke Exposure: No Substance Use Type: Caffiene service: No Current occupational status: employed Cognitive needs: No Hearing needs: No Vision needs: Yes Questionnaire Thrive Questionnaire Date Thrive assessed: 11/13/23 Are you currently unemployed and looking for a job?: No AUDIT C Alcohol Use Questionnaire (AUDIT-C) 1. How often do you have a drink containing alcohol?: Never 3. How often do you have six or more drinks on one occasion?: Never Total Score: 0 Score Reviewed/Action Taken: Yes JUAN M-7 AMB Questionnaire JUAN M-7 Date JUAN M - 7 assessed: 02/23/23 Source: Developed by Drs. Jagjti Page, Joyce Roberson, Genaro Sidhu and colleagues, with an educational francie from [employer]. Review of Systems Const Denies body aches, Denies fever(s) and Denies weakness Eyes Denies blurry vision, Denies change in vision and Denies diplopia ENT Reports no additional complaints, Reports Normal hearing present and Denies dizziness Card Denies chest pain, Denies diaphoresis, Denies syncope, Denies irregular heart rhythm, Denies leg edema, Denies lightheadedness and Denies dyspnea Resp Denies dyspnea GI Reports no additional complaints Musc Reports no additional complaints Skin/Breast Reports system reviewed and no additional complaints, except as documented Neuro Reports Normal hearing present, Denies confusion, Denies dizziness, Denies syncope, Denies Sensory deficit (Neuro) and Denies weakness Psych Denies confusion Physical exam (Primary Care) Vital Signs: Last Vital Signs Pulse 105 H 11/22/23 16:01 BP 134/68 11/22/23 16:01 Pulse Ox 98 11/22/23 16:01 Oxygen Delivery Method Room Air 11/22/23 16:01 BMI result Body Mass Index 28.0 Tobacco/Smoking Status: Tobacco use Status Tobacco use date assessed 02/23/23 11/22/23 16:06 Patient Tobacco Use Status Current everyday Tobacco 11/22/23 16:06 Tobacco use type Cigarette 11/22/23 16:06 e-Cigarette/Vaping Use Never Used 11/22/23 16:06 Thrive Assessment: Date of Thrive Assessment Date Thrive assessed 11/13/23 11/22/23 16:06 Const General: cooperative, healthy appearing, comfortable and no acute distress; No confusion Orientation/consciousness: patient oriented x3 and No confusion HENMT Head: Yes normocephalic Ears: hearing grossly normal bilaterally General nose exam: Normal external nose present Eyes General: appearance normal, both eyes and all related structures Conjunctivae: conjunctivae normal Pupils: Equal, round and reactive pupils present Neck Neck: Yes full ROM and Yes no lymphadenopathy Resp Effort & Inspection: normal respiratory effort Auscultation: clear to auscultation bilaterally, no crackles, no rales, no rhonchi and no wheezes Cardio Rate: regular rate Rhythm: regular rhythm Skin General skin exam: no rashes or lesions noted Neuro General: patient oriented x3 and No confusion Cranial nerves: Yes Equal, round and reactive pupils present, Yes Normal facial strength present, Yes Normal hearing present, Yes Ability to bilaterally rotate head present and Yes Ability to bilaterally elevate shoulders present Gait exam (Neuro): Normal gait present Sensory Exam: No Sensory deficit (Neuro) Extrem General: Yes normal to inspection, Yes full ROM and No edema Psych Affect: normal affect Attitude: cooperative Insight: Good insight present (Psych) Judgement: Good judgement present (Psych) Coding Level of Care Code TCM Mod MDM <= 14 Days Complex EM visit Add On G2211 Diagnoses Hypertension I10 Hyperlipidemia E78.5 Heavy tobacco smoker >10 cigarettes per day F17.210 Cerebral infarction due to thrombosis of cerebral artery I63.30 Cerebral infarction mechanism: thrombosis Precerebral and cerebral artery: unspecified cerebral artery Assessment & Plan Assessment & Plan (1) Hypertension: Code(s): I10 - Essential (primary) hypertension Category: Medical Plan: Continue on current blood pressure medication. Avoid salt intake and encourage healthy diet and regular exercise. (2) Hyperlipidemia: Code(s): E78.5 - Hyperlipidemia, unspecified Category: Medical Plan: Avoid foods that are high in cholesterol such as red meat, fried foods, eggs and baked goods. Triglyceride goal of less than 150 and LDL goal of less than 70. Continue on rosuvastatin. Ordered for updated blood work to be completed before next three-month appointment including lipid panel and CMP. (3) Heavy tobacco smoker >10 cigarettes per day: Code(s): F17.210 - Nicotine dependence, cigarettes, uncomplicated Category: Social Hx Plan: Smoking cigarettes and the use of tobacco can be harmful. We discussed the importance of stopping and options to aid in smoking cessation. Patient has cut down on smoking and does continue to vape nicotine. (4) Cerebral infarction: Code(s): I63.9 - Cerebral infarction, unspecified Category: Medical Qualifiers: Cerebral infarction mechanism: thrombosis Precerebral and cerebral artery: unspecified cerebral artery Qualified Code(s): I63.30 - Cerebral infarction due to thrombosis of unspecified cerebral artery Plan: Continue on present medication. Work on good control of blood pressure, cholesterol, sugars. Strongly advised to stop smoking. Ordered for echo per recommendation from hospitalist. Plan This note was constructed using voice recognition software. While every effort has been made to ensure accuracy and fire control assistant, still areas may have been included sometimes these areas may affect the content or meeting of the given symptoms. Total time spent caring for the patient today was 30 minutes. This includes time spent before the visit reviewing the chart, time spent during the visit, and time spent after the visit and documentation. Orders: Orders Lipid Panel 3 Months Z13.220 - Encounter for screening for lipoid disorders Complete Blood Count Auto Diff 3 Months Z13.0 - Encounter for screening for diseases of the blood and blood-forming organs and certain disorders involving the immune mechanism Comprehensive [place]. Panel Fast 3 Months Z13.9 - Encounter for screening, unspecified CA echo transthoracic complete Today I63.30 - Cerebral infarction due to thrombosis of unspecified cerebral artery
== END 2023-11-22 16:29 | disposition home or self-care (01) ==
PROVIDERS: PCP Internal Medicine
DX: I10 Essential (primary) hypertension (principal); E78.5 Hyperlipidemia, unspecified; F17.210 Nicotine dependence, cigarettes, uncomplicated; I63.30 Cerebral infarction due to thrombosis of unspecified cerebral artery

== ENCOUNTER → 2023-11-22 16:00 | Outpatient (BNVA) | payer BC, SELFPAY | PROVIDERS: PCP Internal Medicine ==

== ENCOUNTER → 2023-12-19 15:02 | Outpatient (REF) | payer BC, SELFPAY ==
--- NOTE | 2023-12-19 15:05 | CA_ITS ---
Transthoracic Echocardiogram Patient (Last, First, Middle): Jeanie Uriostegui J Gender: Female Date of : 1965 Age: 58 Procedure Date: 12/19/2023 Procedure Type: Transthoracic Echocardiogram Location: OP Height: 157.48 cm Weight: 69.4 kg BSA: 1.71 m2 Heart Rate: 83 bpm BP: 134 / 68 mmHg Subassembler: SB Referring MD: Arleth Fritz PA-C Symptoms: I63.30 - Cerebral infarction due to thrombosis of unspecified cerebral a... Study Quality: Adequate ECG Rhythm: Sinus Conclusions: - 1. Normal LV ejection fraction 55-60% with impaired relaxation filling pattern 2. Normal cardiac valvular Dopplers 3. No clear evidence of intra-atrial shunting 4. No gross pericardial effusion Findings Left Ventricle Normal left ventricular size, thickness, and systolic function. The visually estimated ejection fraction is between 55-60%. Spectral Doppler is indicative of an impaired relaxation filling pattern. E/E prime ratio is between 8 and 15 consistent with indeterminate filling pressures. Right Ventricle Normal right ventricular cavity size and systolic function. Atria Both atria are normal in size. There is lipomatous hypertrophy of the interatrial septum. There is no evidence of interatrial shunt by agitated saline. Aortic Valve The aortic valve structure and function is likely normal. There is no aortic valve stenosis. There is no aortic valve regurgitation. Mitral Valve Normal mitral valve structure and function. There is trace mitral valve regurgitation. There is no mitral valve stenosis. Pulmonic Valve The pulmonic valve was not well visualized. Tricuspid Valve Likely normal tricuspid valve structure and function. Tricuspid regurgitation envelope is inadequate for calculation of right ventricular systolic pressure. Normal right atrial pressure. Great Vessels The pulmonary artery was not well visualized. There is no dilatation of the ascending aorta measuring 2.90 cm. Small plaque is seen in the sino tubular ridge. Venous The inferior vena cava is normal in size and collapses greater than 50% with inspiration. Pericardium/Pleural There is no evidence of pericardial effusion. Prior Study Comparison No significant change compared to prior study dated: 09/30/2021. Measurements 2D Linear Measurements IVSd: 0.77 0.6-0.9/0.6-1.0 cm LVIDd: 4.33 3.9-5.3/4.2-5.9 cm LVIDd Index: 2.53 2.4-3.2/2.2-3.1 cm/m2 LVIDs: 2.85 2.0-3.6 cm LVPWd: 0.72 0.7-1.1 cm LA Diam: 2.90 2.7-3.8/3.0-4.0 cm LAIDs Index: 1.70 1.5-2.3 cm/m2 LV Mass: 120.70 67-162/88-224 g LV Mass Index: 70.58 43-95/49-115 g/m2 LVOT Diam: 1.90 3.0+(-)1.3 cm 2D Systolic Function EF 4C: 50.50 >55% EF 2C: 67.20 >55% EF BiP: 59.20 >55% Mitral Valve MV Pk E: 0.89 MV PK A: 0.97 MV Decel Time: 195.00 E/A: 0.90 E'Lateral: 7.18 E'Medial: 6.42 E/E' Med: 13.80 E/E' Lat: 12.40 PHT: 57.00 MVA PHT: 3.86 [place]: 4.56 Aortic Valve AoV Pk Sunil: 1.31 AoV Pk Grad: 7.00 MARIANO: 2.37 LVOT LVOT Pk Sunil: 1.11 LVOT Mn Sunil: 0.71 LVOT VTI: 0.19 LVOT Pk Grad: 5.00 LVOT Mn Grad: 3.00 LVOT Diam: 1.90 LVOT Area: 2.84 Diastolic Function MV Pk E: 0.89 MV Pk A: 0.97 E/A: 0.90 E'Medial: 6.42 E/E' Med: 13.80 E' Laterial: 7.18 E/E' Lat: 12.40 Right Ventricle TAPSE (mm): 17.40 Tricuspid Valve RA Press: 3.00 Great Vessels Aorta Sinus of Valsalva: 2.70 2.0-3.5 cm Ao Asc: 2.90 2.1-3.4 cm Pulmonary Veins Pulm Vein S/D 2.00 Pulmonary Valve PV Pk Sunil: 1.21 Peak PV Grad: 6.00 Updated in Other Vendor System with Status of Final Toy Manzanares MD electronically signed on 12/19/2023 4:17:41 PM with status of Final
== END ==
LOC: HO.CARD 15:02
PROVIDERS: PCP Internal Medicine
DX: I63.30 Cerebral infarction due to thrombosis of unspecified cerebral artery (principal)
CPT/HCPCS: 93306

== ENCOUNTER → 2023-12-19 15:05 | Outpatient (BNV) | payer BC, SELFPAY | PROVIDERS: PCP Internal Medicine; Visit Provider Internal Medicine Cardiovascular Disease | DX: I42.2 Other hypertrophic cardiomyopathy (principal); I63.30 Cerebral infarction due to thrombosis of unspecified cerebral artery | CPT/HCPCS: 93306 ==

== ENCOUNTER 2024-02-16 14:07 | Outpatient (REF) | payer BC, SELFPAY ==
[2024-02-16 15:36] LABS: MANUAL DIFF FLAG NO
[2024-02-16 15:43] LABS: Basophils Absolute Auto 0.1 X10*3/uL (0.0-0.2); Basophils Percent Auto 0.5 % (0-2); Eosinophils Absolute Auto 0.1 X10*3/uL (0.0-0.4); Eosinophils Percent Auto 1.5 % (0-4); Hematocrit 44.5 % (37.0-47.0); Hemoglobin 14.7 g/dl (12.0-16.0); Imm Gran Abs Auto 0.02 X10*3/uL (0.00-0.03); Imm Gran Pct Auto 0.2 % (0.0-0.4); Lymphocytes Absolute Auto 2.6 X10*3/uL (1.2-4.9); Lymphocytes Percent Auto 27.6 % (20-40); Mean Corpuscular Hemoglobin 30.4 pg (27.0-33.0); Mean Corpuscular Volume 92.1 fL (80.0-98.0); Monocytes Absolute Auto 0.7 X10*3/uL (0.1-1.2); Monocytes Percent Auto 7.5 % (2-11); Neutrophils Absolute Auto 5.8 x10*3/uL (2.0-8.3); Neutrophils Percent Auto 62.7 % (45-73); Platelet Count 214 X10*3/uL (160-400); Red Blood Count 4.83 X10*6/uL (4.20-5.50); White Blood Count 9.3 X10*3/uL (4.8-10.8)
[2024-02-16 16:03] LABS: Alanine Aminotransferase 19 U/L (0-31); Albumin Level 4.2 g/dL (3.5-5.0); Anion Gap 11 (12-20); Aspartate Amino Transferase 21 U/L (5-31); Bilirubin Total 0.3 mg/dL (0.0-1.0); Blood Urea Nitrogen 6 mg/dL (9-16); Calcium 9.4 mg/dL (8.4-10.2); Carbon Dioxide 28 mmol/L (22-29); Chloride 107 mmol/L (96-108); Cholesterol 97 mg/dL (<200); Estimated Glomerular Filt Rate > 60; Glucose Fasting 69 mg/dL (60-99); HDL Cholesterol 44 mg/dL (>40); LDL Cholesterol Calculated 30 mg/dL (<100); Sodium 142 mmol/L (135-145); Total Protein 7.8 g/dL (6.5-8.0); Triglycerides 116 mg/dL (<150)
[2024-02-16 16:26] LABS: Alkaline Phosphatase 66 U/L (39-117); Thyroid Stimulating Hormone 0.25 uIU/mL (0.32-4.0)
== END 2024-02-16 14:08 | disposition home or self-care (01) ==
LOC: HO.HMGCLDS 14:07
PROVIDERS: PCP Internal Medicine
DX: Z13.0 Encounter for screening for diseases of the blood and blood-forming organs and certain disorders involving the immune mechanism (principal); Z13.9 Encounter for screening, unspecified; Z13.220 Encounter for screening for lipoid disorders; Z13.29 Encounter for screening for other suspected endocrine disorder
CPT/HCPCS: 36415; 80053; 80061; 84443; 85025

== ENCOUNTER 2024-02-21 15:51 | Outpatient (AMB) | payer BC, SELFPAY ==
[2024-02-21 16:03] VITALS: BP 130/70; PULSE 96; TEMP 36.2; O2SAT 97; BMI 28.2
--- NOTE | 2024-02-21 16:03 | A.OFFPC_ITS ---
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 Manager Required: No Accompanied by: Self / Same As Patient Allergies No Known Allergies Allergy (Verified 02/21/24 16:08) Medication List - Last Reconciled 02/21/24 by Arleth Fritz PA-C aspirin 81 mg PO DAILY@1999 clopidogrel 75 mg PO DAILY@1999 lisinopril 5 mg PO DAILY@1999 rosuvastatin 20 mg PO DAILY Tobacco use date assessed: 02/21/24 Dental Screening Dental Screen Date: 02/21/24 Did you have a dental visit in the last 12 months?: Yes Did you have a dental problem in the last 6 months where you did not have access to dental care?: No Was dental information given to patient?: Patient has dentist HPI 3 Month F/U HPI Details 58-year-old female with past medical his tory of tobacco abuse, cerebral infarction 09/2021, hyperlipidemia, hypertension last seen 11/2023 coming in for follow up.? In review of the notes, patient had echo completed 12/2023 showing normal left ventricular ejection fraction and no other abnormalities. Patient tells us today she continues to feel fatigued. She states she sleeps well at night but does snore and denies any shortness of breath night. Overall she is feeling generally well. [facility] Medical History Heavy tobacco smoker >10 cigarettes per day Hypertension Complicated UTI (urinary tract infection) Recurrent UTI (urinary tract infection) Frequency of micturition Dysuria Surgical History Hx of local excision of skin lesion (04/14/22) Family History Father Stomach cancer Mother Sarcoidosis Social History Household Members: Spouse Housing: House Do you presently have visiting nurse or other home services: No Patient Tobacco Use Status: Current everyday Tobacco user Tobacco use type: Cigarette Cigarettes Per Day: 4 Years Smoked: 30 e-Cigarette/Vaping Use: Never Used Second Hand Smoke Exposure: No Substance Use Type: Caffiene service: No Current occupational status: employed Cognitive needs: No Hearing needs: No Vision needs: Yes Questionnaire PHQ-9 Over the last 2 weeks, how often have you been bothered by any of the following problems? 1. Little interest or pleasure in doing things: not at all 2. Feeling down, depressed, or hopeless: not at all 3. Trouble falling or staying asleep, or sleeping too much: not at all 4. Feeling tired or having little energy: not at all 5. Poor appetite or overeating: not at all 6. Feeling bad about yourself - or that you are a failure or have let yourself or your family down: not at all 7. Trouble concentrating on things, such as reading the newspaper or watching television: not at all 8. Moving or speaking so slowly that other people could have noticed. Or the opposite - being so fidgety or restless that you have been moving around a lot more than usual: not at all 9. Thoughts that you would be better off or of hurting yourself in some way: not at all Total score: 0 Depression Screening Interpretation: Negative Depression Screening Done: Yes 72493 - PHQ-9 Billing: Yes Source: Developed by Drs. Jagjit Page, Joyce Roberson, Genaro Sidhu and colleagues, with an educational francie from [employer]. Thrive Questionnaire Date Thrive assessed: 02/21/24 I am a: Patient What is your living situation today?: I have a steady place to live Within the past 12 months, did the food you bought not last and you didn't have the money to get more?: Never true Within the past 12 months, did you worry whether your food would run out before you got money to buy more?: Never true Do you have trouble paying for medicines?: No Do you have trouble getting transportation to medical appointments?: No Do you have trouble paying your heating and electricity bill?: No Do you have trouble taking care of your child, family member or friend?: No Do you have trouble with day-to-day activities such as bathing, preparing meals, shopping, managing finances, etc.?: No Are you currently unemployed and looking for a job?: No Are you interested in more education?: No Please select the resources that you would like help with: None Currently or been in a relationship where the following occur: No concerns reported THRIVE Score: 0 AUDIT C Alcohol Use Questionnaire (AUDIT-C) 1. How often do you have a drink containing alcohol?: Monthly or less 2. How many drinks containing alcohol do you have on a typical day when you are drinking?: 1 or 2 3. How often do you have six or more drinks on one occasion?: Never Total Score: 1 JUAN M-7 AMB Questionnaire JUAN M-7 Date JUAN M - 7 assessed: 02/21/24 Feeling nervous, anxious, or on edge: 0 = Not at all Not being able to stop or control worryin = Not at all Worrying too much about different things: 0 = Not at all Trouble relaxin = Not at all Being so restless that it is hard to sit still: 0 = Not at all Becoming easily annoyed or irritable: 0 = Not at all Feeling afraid as if something awful might happen: 0 = Not at all Total JUAN M-7 score (0-4 normal; 5-9 mild; 10-14 moderate; 15-21 severe): 0 Source: Developed by Drs. Jagjit Page, Joyce Roberson, Genaro Sidhu and colleagues, with an educational francie from [employer]. JUAN M-7 Assessment Billing JUAN M-7 Assessment Tool: JUAN M-7 Assessment 63199 Review of Systems Const Denies body aches, Denies chills, Reports fatigue, Denies fever(s), Denies headache(s) and Denies poor appetite Eyes Reports no additional complaints ENT Denies dizziness and Denies headache(s) Card Denies chest pain, Denies lightheadedness and Denies dyspnea Resp Denies cough and Denies dyspnea GI Denies abdominal pain, Denies constipation, Denies diarrhea, Denies nausea and Denies vomiting Reports no additional complaints Musc Reports no additional complaints and Denies abnormal gait Skin/Breast Reports system reviewed and no additional complaints, except as documented Neuro Denies abnormal gait, Denies dizziness and Denies headache(s) Psych Reports no additional complaints Endo Reports fatigue Physical exam (Primary Care) Vital Signs: Last Vital Signs Temp 97.1 F 01/16/25 16:03 Pulse 96 02/21/24 16:03 BP 130/70 02/21/24 16:03 Pulse Ox 97 02/21/24 16:03 Oxygen Delivery Method Room Air 02/21/24 16:03 BMI result Body Mass Index 28.2 Tobacco/Smoking Status: Tobacco use Status Tobacco use date assessed 02/21/24 02/21/24 16:08 Patient Tobacco Use Status Current everyday Tobacco 02/21/24 16:03 Tobacco use type Cigarette 02/21/24 16:03 e-Cigarette/Vaping Use Never Used 02/21/24 16:03 PHQ-9: PHQ-9 Score PHQ-9: Total score 0 02/21/24 16:08 Depression Screening Interpretation: Negative Thrive Assessment: Date of Thrive Assessment Date Thrive assessed 02/21/24 02/21/24 16:08 Currently or been in a relationship where the following occur: No concerns reported Const General: cooperative, healthy appearing, comfortable and no acute distress Orientation/consciousness: patient oriented x3 HENMT Head: Yes normocephalic Ears: hearing grossly normal bilaterally General nose exam: Normal external nose present Eyes General: appearance normal, both eyes and all related structures Conjunctivae: conjunctivae normal Neck Neck: Yes full ROM and Yes no lymphadenopathy Resp Effort & Inspection: normal respiratory effort Auscultation: clear to auscultation bilaterally, no crackles, no rales, no rhonchi and no wheezes Cardio Rate: regular rate Rhythm: regular rhythm Skin General skin exam: no rashes or lesions noted Neuro General: patient oriented x3 Gait exam (Neuro): Normal gait present Extrem General: Yes normal to inspection, Yes full ROM and No edema Psych Affect: normal affect Attitude: cooperative Insight: Good insight present (Psych) Judgement: Good judgement present (Psych) Coding Level of Care Code Est Pt Level 3 (49751) Diagnoses Hypersomnolence G47.10 Primary hypertension I10 Hypertension type: primary hypertension Pure hypercholesterolemia E78.00 Hyperlipidemia type: pure hypercholesterolemia 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 Ordered for blood work and home sleep study for further evaluation. (2) Hypertension: Code(s): I10 - Essential (primary) hypertension Category: Medical Qualifiers: Hypertension type: primary hypertension Qualified Code(s): I10 - Essential (primary) hypertension Plan: Continue on current blood pressure medication. Avoid salt intake and encourage healthy diet and regular exercise. (3) Hyperlipidemia: Code(s): E78.5 - Hyperlipidemia, unspecified Category: Medical Qualifiers: Hyperlipidemia type: pure hypercholesterolemia Qualified Code(s): E78.00 - Pure hypercholesterolemia, unspecified Plan: Avoid foods that are high in cholesterol such as red meat, fried foods, eggs and baked goods. Triglyceride goal of less than 150 and LDL goal of less than 70. Continue on rosuvastatin 5. Cholesterol at goal on last labs. (4) Cerebral infarction: Code(s): I63.9 - Cerebral infarction, unspecified Category: Medical Qualifiers: Cerebral infarction mechanism: thrombosis Precerebral and cerebral artery: unspecified cerebral artery Qualified Code(s): I63.30 - Cerebral infarction due to thrombosis of unspecified cerebral artery Plan: Advised good control of the blood pressure, cholesterol any blood sugar. Continue to monitor labs. Plan This note was constructed using voice recognition software. While every effort has been made to ensure accuracy and airplane pilot crop dusting, still areas may have been included sometimes these areas may affect the content or meeting of the given symptoms. Total time spent caring for the patient today was 20 minutes. This includes time spent before the visit reviewing the chart, time spent during the visit, and time spent after the visit and documentation. Orders: Orders TSH reflex Free T4 Today Z00.00 - Encounter for general adult medical examination without abnormal findings Free T4 (Free Thyroxine) Today Z00.00 - Encounter for general adult medical e xamination without abnormal findings RT home sleep study Today G47.10 - Hypersomnia, unspecified Magnesium Today Z00.00 - Encounter for general adult medical examination without abnormal findings Vitamin B12 and Folate Today Z00.00 - Encounter for general adult medical examination without abnormal findings Vitamin D 25-OH Total Today Z00.00 - Encounter for general adult medical examination without abnormal findings Medications: Changed From lisinopril 5 mg PO DAILY@1999 To lisinopril 5 mg PO ONCE 90 tabs 2RF
== END 2024-02-21 16:47 | disposition home or self-care (01) ==
PROVIDERS: PCP Internal Medicine
DX: G47.10 Hypersomnia, unspecified (principal); I10 Essential (primary) hypertension; E78.00 Pure hypercholesterolemia, unspecified; I63.30 Cerebral infarction due to thrombosis of unspecified cerebral artery

== ENCOUNTER → 2024-02-21 15:51 | Outpatient (BNVA) | payer BC, SELFPAY | PROVIDERS: PCP Internal Medicine | DX: G47.10 Hypersomnia, unspecified (principal); I10 Essential (primary) hypertension; E78.00 Pure hypercholesterolemia, unspecified; Z86.73 Personal history of transient ischemic attack (TIA), and cerebral infarction without residual deficits; Z79.899 Other long term (current) drug therapy | CPT/HCPCS: 96127 ==

== ENCOUNTER 2024-03-15 13:59 | Outpatient (REF) | payer BC, SELFPAY ==
--- OUTSIDE RECORDS SUMMARY | 2024-03-15 14:01 | XMS_ITS | Patient Health Record ---
Author Organization [facility] Address [address] [place] [address] Care Team Providers Care Supply Chain Design Manager Name Role Phone Caleb Gill MD Primary Care Provider Unavaila ble Jagjit Bay Unavailable [phone] REASON FOR REFERRAL Referring Provider First Name Caleb Referring Provider Last Name Bridget Referring Provider Speciality General Pr actice Referred Organization [facility] Referred Provider Jagjit Bay Referred Address [address] [facility],[place] [address],[place], [place],[address], Referred Provider Specialty Gastroentero logy General Notes Ramona Carpio 024 04:24:21 PM EST > requested an hmo blue referral from Dr. Gill's office for visit with Dr. Bay on 05-11-2023 Referral Priority Routine SOCIAL HISTORY Sex Assigned At : Social History Observation Description Sex Assigned At Unknown Encounters Encounter Location Date Provider Diagnosis [facility] [address] [place] [address] 05/11/2023 Jagjit Bay [facility] [address] [place] [address] 08/15/2023 Jagjit Bay [facility] [address] [place] [address] 05/11/2023 Jagjit Bay [facility] [address] [place] [address] 06/28/2023 Jagjit Bay [facility] [address] [place] [address] 08/15/2023 Jagjit Bay PLAN OF TREATMENT No Information Insurance Providers Payer Name Payer Address Payer Phone Subscriber Number Group Number Insured Name Patient Relationship to Insured Coverage Start Date Coverage End Date HMO BLUE [employer] PROFESSIONAL CLAIMS [address] [place] [address] [id number] KELLIE PRABHAKAR Self - patient is the insured
--- OUTSIDE RECORDS SUMMARY | 2024-03-15 14:01 | XMS_ITS ---
Author Organization [facility] Address [address] [place] [id number] Care Team Providers Care Sponge Clipper Name Role Phone Caleb Gill MD Primary Care Provider Unavaila Jagjit Huber Unavailable [phone] REASON FOR VISIT Patient presents today for fecal abnormalties Encounters Encounter Location Date Provider Diagnosis [facility] [address] [place] [id number] 08/15/2023 Jagjit Bay PLAN OF TREATMENT No Information
--- OUTSIDE RECORDS SUMMARY | 2024-03-15 14:01 | XMS_ITS ---
Author Organization [facility] Address [address] [place] [address] Care Team Providers Care Hogshead Hand Name Role Phone Bridget OSEI, Caleb Primary Care Provider Unavaila Jagjit Huber Unavailable [phone] REASON FOR VISIT please double check insurance Encounters Encounter Location Date Provider Diagnosis [facility] [address] [place] [address] 06/28/2023 Jagjit Bay PLAN OF TREATMENT No Information
[2024-03-15 15:56] LABS: Magnesium 2.1 mg/dL (1.6-2.6)
[2024-03-15 16:11] LABS: Free T4 (Free Thyroxine) 1.03 ng/dL (0.71-1.85); TSH reflex Free T4 0.49 uIU/mL (0.32-4.0); Vitamin D 25-OH Total 13.5 ng/mL (>30)
[2024-03-15 16:26] LABS: Folate 11.7 ng/mL (> or = 4.0); Vitamin B12 336 pg/mL (200-900)
== END 2024-03-15 14:00 | disposition home or self-care (01) ==
LOC: HO.HMGCLDS 13:59
PROVIDERS: PCP Internal Medicine
DX: Z00.00 Encounter for general adult medical examination without abnormal findings (principal)
CPT/HCPCS: 36415; 82306; 82607; 82746; 83735; 84439; 84443

== ENCOUNTER 2024-05-21 15:55 | Outpatient (AMB) | payer BC, SELFPAY ==
--- NOTE | 2024-05-21 16:00 | MHC.PC.OV ---
Vital Signs 05/21/24 16:01 Height 5 ft 2 in Weight 154 lb BMI 28.2 BP 132/62 Blood Pressure Location Lt brachial Position Sitting Pulse 87 Pulse Source Pulse Oximeter Temp 97.1 F Temp Source Temporal Artery Scan Pulse Oximetry (%) 93 Oxygen Delivery Method Room Air Intake Visit Reasons: f/u cholesterol and CVA Intake Note: Patient is here to follow up on Cholesterol and CVA. Starter Mechanic Required: No Video Production Coordinator: Not Required per policy Accompanied by: Self / Same As Patient Allergies No Known Allergies Allergy (Verified 05/21/24 16:09) Medication List - Last Reconciled 05/21/24 by Arleth Fritz PA-C aspirin 81 mg PO DAILY@1999 cholecalciferol (vitamin D3) 25 mcg PO DAILY clopidogrel 75 mg PO DAILY@1999 lisinopril 5 mg PO ONCE rosuvastatin 20 mg PO DAILY Tobacco use date assessed: 05/21/24 Dental Screening Dental Screen Date: 02/21/24 HPI f/u cholesterol and CVA HPI Details 59-year-old female with past medical history of tobacco abuse, cerebral infarction 09/2021, hyperlipidemia, hypertension last seen 02/2024 coming in for follow up.? Presenting with follow-up for vitamin D supplementation and general health assessment. Following recent vitamin D supplementation, the patient reports improved energy and mental clarity, notably enhancing her ability to descend stairs after a previous stroke. Her thyroid function has normalized, and recent blood work reveals stable cholesterol and blood pressure levels. She discontinued a planned sleep study upon experiencing health improvements related to vitamin D. She has ceased cigarette smoking but transitioned to vaping and asserts cessation of cigarettes for several years. [facility] Medical History Heavy tobacco smoker >10 cigarettes per day Hypertension Complicated UTI (urinary tract infection) Recurrent UTI (urinary tract infection) Frequency of micturition Dysuria Surgical History Hx of local excision of skin lesion (04/14/22) Family History Father Stomach cancer Mother Sarcoidosis Social History Household Members: Spouse Housing: House Do you presently have visiting nurse or other home services: No Alcohol intake: never Patient Tobacco Use Status: Former Tobacco user Tobacco use type: Cigarette Cigarettes Per Day: 4 Years Smoked: 30 e-Cigarette/Vaping Use: Currently Using Second Hand Smoke Exposure: No Substance Use Type: Caffiene service: No Current occupational status: employed Cognitive needs: No Hearing needs: No Vision needs: Yes Questionnaire Thrive Questionnaire Date Thrive assessed: 02/21/24 JUAN M-7 AMB Questionnaire JUAN M-7 Date JUAN M - 7 assessed: 02/21/24 Source: Developed by Drs. Jagjit Page, Joyce Roberson, Genaro Sidhu and colleagues, with an educational francie from [employer]. Review of Systems Const Denies body aches, Denies chills, Denies fever(s), Denies headache(s) and Denies poor appetite Eyes Reports no additional complaints ENT Denies dysphagia, Denies dizziness, Denies headache(s) and Denies odynophagia Card Denies chest pain, Denies syncope, Denies edema, Denies irregular heart rhythm, Denies lightheadedness and Denies dyspnea Resp Denies cough and Denies dyspnea GI Denies abdominal pain, Denies constipation, Denies dysphagia, Denies diarrhea, Denies nausea, Denies odynophagia and Denies vomiting Reports no additional complaints Musc Reports no additional complaints and Denies abnormal gait Skin/Breast Reports system reviewed and no additional complaints, except as documented Neuro Denies abnormal gait, Denies dizziness, Denies syncope and Denies headache(s) Psych Reports no additional complaints Physical exam (Primary Care) Vital Signs: Last Vital Signs Temp 97.1 F 05/21/24 16:01 Pulse 87 05/21/24 16:01 BP 132/62 05/21/24 16:01 Pulse Ox 93 05/21/24 16:01 Oxygen Delivery Method Room Air 05/21/24 16:01 BMI result Body Mass Index 28.2 Tobacco/Smoking Status: Tobacco use Status Tobacco use date assessed 05/21/24 05/21/24 16:07 Patient Tobacco Use Status Former Tobacco user 05/21/24 16:07 Tobacco use type Cigarette 05/21/24 16:07 e-Cigarette/Vaping Use Currently Using 05/21/24 16:07 Thrive Assessment: Date of Thrive Assessment Date Thrive assessed 02/21/24 05/21/24 16:07 Const General: cooperative, healthy appearing, comfortable and no acute distress Orientation/consciousness: patient oriented x3 HENMT Head: Yes normocephalic Ears: hearing grossly normal bilaterally General nose exam: Normal external nose present Eyes General: appearance normal, both eyes and all related structures Conjunctivae: conjunctivae normal Neck Neck: Yes full ROM and Yes no lymphadenopathy Resp Effort & Inspection: normal respiratory effort Auscultation: clear to auscultation bilaterally, no crackles, no rales, no rhonchi and no wheezes Cardio Rate: regular rate Rhythm: regular rhythm Skin General skin exam: no rashes or lesions noted Neuro General: patient oriented x3 Gait exam (Neuro): Normal gait present Extrem General: Yes normal to inspection, Yes full ROM and No edema Psych Affect: normal affect Attitude: cooperative Insight: Good insight present (Psych) Judgement: Good judgement present (Psych) Coding Level of Care Code Est Pt Level 3 (79497) Diagnoses Primary hypertension I10 Hypertension type: primary hypertension Pure hypercholesterolemia E78.00 Hyperlipidemia type: pure hypercholesterolemia Cerebral infarction due to thrombosis of cerebral artery I63.30 Cerebral infarction mechanism: thrombosis Precerebral and cerebral artery: unspecified cerebral artery Heavy tobacco smoker >10 cigarettes per day F17.210 Hypersomnolence G47.10 Vitamin D deficiency E55.9 Assessment & Plan Assessment & Plan (1) Hypertension: Code(s): I10 - Essential (primary) hypertension Category: Medical Qualifiers: Hypertension type: primary hypertension Qualified Code(s): I10 - Essential (primary) hypertension Plan: Continue on current blood pressure medication. Avoid salt intake and encourage healthy diet and regular exercise. (2) Hyperlipidemia: Code(s): E78.5 - Hyperlipidemia, unspecified Category: Medical Qualifiers: Hyperlipidemia type: pure hypercholesterolemia Qualified Code(s): E78.00 - Pure hypercholesterolemia, unspecified Plan: Avoid foods that are high in cholesterol such as red meat, fried foods, eggs and baked goods. Triglyceride goal of less than 150 and LDL goal of less than 70. Continue on rosuvastatin 5. Cholesterol at goal on last labs. (3) Cerebral infarction: Code(s): I63.9 - Cerebral infarction, unspecified Category: Medical Qualifiers: Cerebral infarction mechanism: thrombosis Precerebral and cerebral artery: unspecified cerebral artery Qualified Code(s): I63.30 - Cerebral infarction due to thrombosis of unspecified cerebral artery Plan: Advised good control of the blood pressure, cholesterol any blood sugar. Continue to monitor labs. Referral was also placed to Neurology. (4) Heavy tobacco smoker >10 cigarettes per day: Comment: quit smoking 2022 Code(s): F17.210 - Nicotine dependence, cigarettes, uncomplicated Category: Social Hx Plan: Patient is a longer smoking cigarettes she does endorse occasional vaping. Referral was placed to lung cancer screening program. (5) Hypersomnolence: Code(s): G47.10 - Hypersomnia, unspecified Category: Medical Plan: Patient canceled the home sleep study test as her hypersomnolence improved once she began taking the vitamin-D supplementation. (6) Vitamin D deficiency: Code(s): E55.9 - Vitamin D deficiency, unspecified Category: Medical Plan: Patient began taking vitamin-D supplementation and noticed her symptoms of fatigue and hypersomnolence and brain fog had resolved. Continue on supplementation at this time. Plan This note was constructed using voice recognition software. While every effort has been made to ensure accuracy and hydro station supervisor, still areas may have been included sometimes these areas may affect the content or meeting of the given symptoms. Total time spent caring for the patient today was 20 minutes. This includes time spent before the visit reviewing the chart, time spent during the visit, and time spent after the visit and documentation. Orders: Orders Complete Blood Count Auto Diff 05/21/24 I63.30 - Cerebral infarction due to thrombosis of unspecified cerebral artery Comprehensive Met. Panel 05/21/24 E78.00 - Pure hypercholesterolemia, unspecified, I10 - Essential (primary) hypertension Lipid Panel 05/21/24 E78.00 - Pure hypercholesterolemia, unspecified Referrals Neurology Referral I63.30 - Cerebral infarction due to thrombosis of unspecified cerebral artery Lung Cancer Screening Referral F17.210 - Nicotine dependence, cigarettes, uncomplicated
[2024-05-21 16:01] VITALS: BP 132/62; PULSE 87; TEMP 36.2; O2SAT 93; BMI 28.2
== END 2024-05-21 16:36 | disposition home or self-care (01) ==
LOC: HO.HMCH 15:56
PROVIDERS: PCP Internal Medicine
DX: I10 Essential (primary) hypertension (principal); E78.00 Pure hypercholesterolemia, unspecified; I63.30 Cerebral infarction due to thrombosis of unspecified cerebral artery; F17.210 Nicotine dependence, cigarettes, uncomplicated; G47.10 Hypersomnia, unspecified; E55.9 Vitamin D deficiency, unspecified

== ENCOUNTER → 2024-05-21 15:55 | Outpatient (BNVA) | payer BC, SELFPAY | PROVIDERS: PCP Internal Medicine ==